=== PATIENT | male | born 1945 | race Caucasian/White ===

== ENCOUNTER → 2017-05-31 10:55 | Outpatient (CLI) | payer MEDICARE | END | disposition home or self-care (01) | LOC: D.MRI 10:55 | DX: M54.16 Radiculopathy, lumbar region (principal) ==

== ENCOUNTER 2017-10-24 11:53 | Outpatient (CLI) | payer MEDICARE ==
[~2017-10-24] VITALS: Ht 175.3 cm; Wt 81.8 kg
[2017-10-24 16:42] VITALS: BP 160/66; Ht 175.3 cm; Wt 81.8 kg
== END 2017-10-24 18:00 | disposition home or self-care (01) ==
LOC: D.OPS 11:53
DX: D46.20 Refractory anemia with excess of blasts, unspecified (principal); Z01.812 Encounter for preprocedural laboratory examination

== ENCOUNTER → 2017-10-29 09:00 | Outpatient (CLI) | payer MEDICARE ==
[2017-10-24 16:42] VITALS: BMI 26.6
== END | disposition home or self-care (01) ==
LOC: D.CT 08:30
DX: K13.79 Other lesions of oral mucosa (principal)

== ENCOUNTER → 2017-12-26 14:35 | Outpatient (CLI) | payer MEDICARE ==
[2017-10-24 16:42] VITALS: BMI 26.6
== END | disposition home or self-care (01) ==
LOC: D.MRI 12:00
DX: C79.31 Secondary malignant neoplasm of brain (principal)

== ENCOUNTER 2018-02-04 00:02 | Inpatient (IN) | payer MEDICARE ==
[2018-02-04] VITALS (8 sets, daily range): BP systolic 132–214; BP diastolic 47–92; Ht 175.3 cm; Wt 77.1 kg
[~2018-02-04] VITALS: Ht 175.3 cm; Wt 77.1 kg
--- NOTE | ~2018-02-04 | MORECARE ---
CASE MANAGEMENT DISCHARGE SUMMARY PATIENT: DAWN AGUILERA UNIT: [id number] ADM DATE: 02/06/18 AGE: 72 : 43 SEX: M ROOM/BED: D.2235 AUTHOR: VJ,DOC PHYSICIAN: REFERRING PHYSICIAN: RADHA HITCHCOCK MD DATE OF SERVICE: 02/17/18 Discharge Plan Patient Name: DAWN AGUILERA Facility: [facility]:[place] : 1945 Planned Disposition: Inpatient Rehab Anticipated Discharge Date: Discharge Date: Expected LOS: Initial Reviewer: [id number] Initial Review Date: 02/04/2018 Generated: 02/17/18 5:38 pm Comments DCP- Discharge Planning Updated by [email or web address]: Lucy Deshpande on 02/17/18 3:[address] Met son in the room and gave him a list of SNF with private rooms. He chose [facility] first. I spoke with Rose at [facility] and gave her a verbal report and clinical faxed. I informed Rose he is getting a PEG tube in the morning. CM will continue to follow and assist with discharge planning/needs. DCP- Discharge Planning Updated by [id number]: Lucy Deshpande on 02/17/18 9:[address] Met with son in the room per his request. Patient is sleeping. Son is asking me to have him evaluated for inpatient rehab because his father is now unable to get to the bathroom. I read him the note from inpatient rehab and explained that it's a Medicare requirement to also be able to participate in rehab for 3 hours a day and with his pain and prior PT notes, it is unlikely that he can participate in 3 hours a day. Saroj (patient's son) becomes angry and states "it's not because of his pain, it's because we are not doing anything for him." I informed him that I would ask inpatient rehab to come and speak with him. I called Divya and informed her of above and he is waiting to talk with them. He also tells me he has been waiting to talk to me for 14 hours and I explained to him that I came in at 8:30 this morning and was just told that you were wanting to speak with me. He has been unwilling to speak about hospice in the past and on Saturday, so I did not speak to him about hospice at this time. I spoke with Dr. Hitchcock about plan for patient. Dr. Hitchcock states he needs to go home or [facility] with hospice. He states he spoke with son this weekend about it and will be here around 3:00 today to speak to him again. I informed his son that Dr. Hitchcock plans on being here at 3 today. Offered him coffee or something to make him more comfortable and he declines. CM will continue to follow and assist with discharge planning/needs. DCP- Discharge Planning Updated by [id number]: Lucy Charlee on 02/14/18 3:[address] Met with patient yesterday and asked him if his son would be in to visit and he states he will be there that afternoon. I did not see his son yesterday, so I called him today to discuss discharge planning. Saroj (his son) was informed that I spoke with Divya in inpatient rehab and he does not meet guidelines for inpatient rehab. He has been ambulating 250 ft with 30% assist or refusing PT. I asked his son if he has another discharge plan and he states No. He seems upset that he does not meet criteria for inpatient rehab. His son states he is out of town this weekend and does not need to think about it now. I will continue to follow along and assist with discharge planning/needs. I did call Divya again and she states he does not meet CMS guidelines for inpatient rehab at this time. DCP- Discharge Planning Updated by [id number]: Lucy Deshpande on 02/11/18 9:[address] I called and spoke to Dariela at Dr. Hernandez's office. Dariela checked with the nurse and she states that Dr. Hernandez is seeing patient after his appointments this morning and should see the patient around lunch time today I notified Mignon, his primary nurse. CM will continue to follow and assist with discharge planning/needs. DCP- Discharge Planning Updated by [id number]: Lucy Deshpande on 02/07/18 4:[address] I spoke with Dr. Hitchcock and he was informed that Dr. Hernandez will be off call until at least Saturday. He states to let the son know. I met with patient's son, Saroj, and his ex- is in the room. Also Emma Davis is in the room from administration. The son is very unhappy with his father's care regarding treatment. His concern is his pain in his jaw and that "nothing is being done. " He is also wanting a second oncology opinion and requests Dr. Lakhani. He was informed that Dr. Lakhani may not be workday financials consultant this weekend, but he does have partners and the son is ok with that. He states Dr. Marx is his PCP and would like to see Dr. Marx. Emma informed him that we could transfer him to a facility that has ENT coverage if they would like. Son and patient refuses to return to [facility] in [place]. They were informed that he could transfer to another facility if they would like ENT to see before next week. At this time, the patient states it is up to his son because "I make poor decisions right now". The son requests to stay here and have Dr. Lakhani consulted. Emma and I talked to Dr. Hitchcock and verbal order received to consult Dr. Marx and Dr. Lakhani. I spoke with Emily at Dr. Marx's office and I spoke to Dr. Salgado (states he will see him tonight or in am). I informed the patient and his ex- that the physicians have been consulted (his son is not in the room at this time). CM will continue to follow and assist with discharge planning/needs. DCP- Discharge Planning Updated by [email or web address]: Lucy Deshpande on 02/07/18 3:[address] I called Dr. Mercedes to see if he knew of consult. States he tried to see patient last night but he was with his nurse and would see the patient today. His primary nurse, Lana, states she has called Dr. Hernandez's office about consult and spoke with Beckie. I called Dr. Hitchcock's office and his answering service picked up, I have asked them to page him to my number to inform of Dr. Hernandez's response. CM will continue to follow and assist with discharge planning/needs. DCP- Discharge Planning Updated by [id number]: Lucy Deshpande on 02/06/18 12:[address] I have talked to Viridiana for the second time at Dr. Hitchcock's office. I informed her that he was still in observation status and does meet inpatient requirement. I also informed her that his progress notes mention possible urology and ENT consult and he did not order consult and no lab is ordered for today. She states she will have him call me. CM will continue to follow and assist with discharge planning/needs. DCP- Discharge Planning Updated by [id number]: Lucy Charlee on 02/04/18 3:[address] Patient Name: DAWN AGUILERA Admission Status: ER Accout number: [id number] Admission Date: 02-04-2018 : 1945 Admission Diagnosis: Attending: RADHA HITCHCOCK Current LOS: 1 Anticipated DC Date: Planned Disposition: Inpatient Rehab Primary Insurance: [facility] [employer] Discharge Planning Comments: CM met with patient, he is alone in the room. He states he is hard of hearing and would like me to call his son for discharge planning. I called his son, Saroj, for discharge planning. I also explained UGALDE and left a copy for the patient. His son states he lives alone. States that he has declined since he got out of [facility] a few days ago. States he is unable to walk very far without difficulty. States he does not feel his dad can return home at this time and needs rehab. States he was turned down for rehab at [facility], but does not know why. States he would like inpatient rehab at [facility] if accepted. I called Dr. Hitchcock's office to get an order for PT/OT and received answering machine. I informed his primary nurse of need. CM will continue to follow and assist with discharge planning/needs. Child Adolescent Psychiatrist: Lucy Deshpande DCPIA - Discharge Planning Initial Assessment Updated by [id number]: Lucy Charlee on 02/04/18 3:02 pm * Is the patient Alert and Oriented? Yes * How many steps to enter\\exit or inside your home? 10 * PCP Araseli * Pharmacy [facility] * Preadmission Environment Home Alone * ADLs Partial Dependent * Partial ADLs (Assistance needed) Ambulation Medication Management * Equipment Wheelchair * List name and contact numbers for known caregivers / representatives who currently or will assist patient after discharge: Saroj - son - [phone] * Verbal permission to speak to the caregivers and representatives has been obtained from the patient. Yes * Community resources currently utilized Home Health * Please name any agencies selected above. [facility] * Additional services required to return to the preadmission environment? Yes * Can the patient safely return to the preadmission environment? No * Has this patient been hospitalized within the prior 30 days at any hospital? Yes Coverage Notice Reviewer: [id number] Joey Deshpande Notice Issued Date-Time: 02/04/2018 15:17 Notice Type: Medicare Outpatient Observation Notice Notice Delivered To: Family Member Relationship to Patient: Son Intelligence Applications Name: Saroj Aguilera Delivery Method: HAND - Hand Delivered Nahed Days: Prior Verbal Notification: Recipient Understood Notice: Yes Recipient Signature: Yes Med Rec Note Co-signed by Attending: Coverage Notice Comment: UGADLE explained to patient and to son on the phone, voiced understanding, copy given to patient. Last DP export: 02/17/18 3:32 p Patient Name: DAWN AGUILERA Page [id number] at 1638 All edits/amendments must be made on the electronic document DICTATION DATE: 02/17/18 1638 CISCO NETWORK ENGINEER: EAN 02/17/18 1638 RPT#: [id number] DC DATE: STATUS: ADM IN [facility] [address] [place] [address] END OF REPORT
--- NOTE | ~2018-02-04 | MORECARE ---
CASE MANAGEMENT DISCHARGE SUMMARY PATIENT: DAWN AGUILERA UNIT: [id number] ADM DATE: 02/06/18 AGE: 72 : 43 SEX: M ROOM/BED: D.2235 AUTHOR: VJDOC PHYSICIAN: REFERRING PHYSICIAN: RADHA HITCHCOCK MD DATE OF SERVICE: 02/07/18 Discharge Plan Patient Name: DAWN AGUILERA Facility: [facility]:[place] : 1945 Planned Disposition: Inpatient Rehab Anticipated Discharge Date: Discharge Date: Expected LOS: Initial Reviewer: [id number] Initial Review Date: 02/04/2018 Generated: 02/07/18 6:00 pm Comments DCP- Discharge Planning Updated by [email or web address]: Lucy Deshpande on 02/07/18 3:[address] I spoke with Dr. Hitchcock and he was informed that Dr. Hernandez will be off call until at least Saturday. He states to let the son know. I met with patient's son, Saroj, and his ex- is in the room. Also Emma Davis is in the room from administration. The son is very unhappy with his father's care regarding treatment. His concern is his pain in his jaw and that "nothing is being done. " He is also wanting a second oncology opinion and requests Dr. Lakhani. He was informed that Dr. Lakhani may not be communications controller this weekend, but he does have partners and the son is ok with that. He states Dr. Marx is his PCP and would like to see Dr. Marx. Emma informed him that we could transfer him to a facility that has ENT coverage if they would like. Son and patient refuses to return to [facility] in [place]. They were informed that he could transfer to another facility if they would like ENT to see before next week. At this time, the patient states it is up to his son because "I make poor decisions right now". The son requests to stay here and have Dr. Lakhani consulted. Emma and I talked to Dr. Hitchcock and verbal order received to consult Dr. Marx and Dr. Lakhani. I spoke with Emily at Dr. Marx's office and I spoke to Dr. Salgado (states he will see him tonight or in am). I informed the patient and his ex- that the physicians have been consulted (his son is not in the room at this time). CM will continue to follow and assist with discharge planning/needs. DCP- Discharge Planning Updated by [id number]: Lucy Deshpande on 02/07/18 2:[address] I called Dr. Mercedes to see if he knew of consult. States he tried to see patient last night but he was with his nurse and would see the patient today. His primary nurse, Lana, states she has called Dr. Hernandez's office about consult and spoke with Beckie. I called Dr. Hitchcock's office and his answering service picked up, I have asked them to page him to my number to inform of Dr. Hernandez's response. CM will continue to follow and assist with discharge planning/needs. DCP- Discharge Planning Updated by [email or web address]: Lucy Deshpande on 02/06/18 11:[address] I have talked to Viridiana for the second time at Dr. Hitchcock's office. I informed her that he was still in observation status and does meet inpatient requirement. I also informed her that his progress notes mention possible urology and ENT consult and he did not order consult and no lab is ordered for today. She states she will have him call me. CM will continue to follow and assist with discharge planning/needs. DCP- Discharge Planning Updated by [email or web address]: Lucy Deshpande on 02/04/18 2:[address] Patient Name: DAWN AGUILERA Admission Status: ER Accout number: [id number] Admission Date: 02-04-2018 : 1945 Admission Diagnosis: Attending: RADHA HITCHCOCK Current LOS: 1 Anticipated DC Date: Planned Disposition: Inpatient Rehab Primary Insurance: [facility] [employer] Discharge Planning Comments: CM met with patient, he is alone in the room. He states he is hard of hearing and would like me to call his son for discharge planning. I called his son, Saroj, for discharge planning. I also explained UGALDE and left a copy for the patient. His son states he lives alone. States that he has declined since he got out of [facility] a few days ago. States he is unable to walk very far without difficulty. States he does not feel his dad can return home at this time and needs rehab. States he was turned down for rehab at [facility], but does not know why. States he would like inpatient rehab at [facility] if accepted. I called Dr. Hitchcock's office to get an order for PT/OT and received answering machine. I informed his primary nurse of need. CM will continue to follow and assist with discharge planning/needs. Keyseater Operator: Lucy Deshpande DCPIA - Discharge Planning Initial Assessment Updated by [id number]: Lucy Deshpande on 02/04/18 3:02 pm * Is the patient Alert and Oriented? Yes * How many steps to enter\\exit or inside your home? 10 * PCP Araseli * Pharmacy [facility] * Preadmission Environment Home Alone * ADLs Partial Dependent * Partial ADLs (Assistance needed) Ambulation Medication Management * Equipment Wheelchair * List name and contact numbers for known caregivers / representatives who currently or will assist patient after discharge: Saroj rao - [phone] * Verbal permission to speak to the caregivers and representatives has been obtained from the patient. Yes * Community resources currently utilized Home Health * Please name any agencies selected above. [facility] * Additional services required to return to the preadmission environment? Yes * Can the patient safely return to the preadmission environment? No * Has this patient been hospitalized within the prior 30 days at any hospital? Yes Coverage Notice Reviewer: [id number] - Lucy Deshpande Notice Issued Date-Time: 02/04/2018 15:17 Notice Type: Medicare Outpatient Observation Notice Notice Delivered To: Family Member Relationship to Patient: Son [employer] Utility Worker Name: Saroj Aguilera Delivery Method: HAND - Hand Delivered Nahed Days: Prior Verbal Notification: Recipient Understood Notice: Yes Recipient Signature: Yes Med Rec Note Co-signed by Attending: Coverage Notice Comment: UGALDE explained to patient and to son on the phone, voiced understanding, copy given to patient. Last DP export: 02/07/18 2:51 Patient Name: DAWN AGUILERA Page [id number] at 1700 All edits/amendments must be made on the electronic document DICTATION DATE: 02/07/18 1700 PROCUREMENT MANAGER: EAN 02/07/18 1700 RPT#: [id number] DC DATE: STATUS: ADM IN [facility] [address] [place] [address] END OF REPORT
--- NOTE | ~2018-02-04 | MORECARE ---
CASE MANAGEMENT DISCHARGE SUMMARY PATIENT: DAWN AGUILERA UNIT: [id number] ADM DATE: 02/06/18 AGE: 72 : 43 SEX: M ROOM/BED: D.2235 AUTHOR: VJDOC PHYSICIAN: REFERRING PHYSICIAN: RADHA HITCHCOCK MD DATE OF SERVICE: 02/20/18 Discharge Plan Patient Name: DAWN AGUILERA Facility: [facility]:[place] : 1945 Planned Disposition: Inpatient Rehab Anticipated Discharge Date: Discharge Date: Expected LOS: Initial Reviewer: [email or web address] Initial Review Date: 02/04/2018 Generated: 02/20/18 4:24 pm Comments DCP- Discharge Planning Updated by [id number]: Lucy Deshpande on 02/20/18 2:[address] Received authorization for patient to come to [facility]. Dr. Hitchcock has put in discharge orders. I spoke with patient and son, Saroj. They are in agreement to discharge to [facility] today (Medicare bed). I informed Saroj that Lucille states he will have to provide Sutent to the patient and Saroj states he understands that and he will provide the Sutent. He will go via [place] van at 3:00. Clinical faxed to [facility] and Primary nurse (Chan) informed and 8 cans of Suplena sent with patient. To discharge today to [facility] skilled bed. DCP- Discharge Planning Updated by [id number]: Lucy Deshpande on 02/19/18 12:[address] Rose from [facility] called and states they will not take patient for usp. Rose states they will take him for Hospice with him signing up for Medicaid or private pay for room rate. I called [facility] and Danna states they do not take [facility] [employer]. I called Lucille Bishop and she states they do take his insurance at [facility] and [facility]. Lucille states they can take him to a skilled bed with a PEG tube per his insurance and will review clinical for decision. I met with patient's son and he agrees with plan to [facility] for usp. I did discuss hospice with his son and he states he has been considering hospice, but is not ready at this time. I discussed that he could revoke hospice at any time for hospital admits and procedures if needed and also the difference between GIP and home hospice or hospice in a facility. CM will continue to follow and assist with discharge planning/needs. DCP- Discharge Planning Updated by [email or web address]: Lucy Deshpande on 02/17/18 3:[address] Met son in the room and gave him a list of SNF with private rooms. He chose [facility] first. I spoke with Rose at [facility] and gave her a verbal report and clinical faxed. I informed Rose he is getting a PEG tube in the morning. CM will continue to follow and assist with discharge planning/needs. DCP- Discharge Planning Updated by [id number]: Lucy Deshpande on 02/17/18 9:[address] Met with son in the room per his request. Patient is sleeping. Son is asking me to have him evaluated for inpatient rehab because his father is now unable to get to the bathroom. I read him the note from inpatient rehab and explained that it's a Medicare requirement to also be able to participate in rehab for 3 hours a day and with his pain and prior PT notes, it is unlikely that he can participate in 3 hours a day. Saroj (patient's son) becomes angry and states "it's not because of his pain, it's because we are not doing anything for him." I informed him that I would ask inpatient rehab to come and speak with him. I called Divya and informed her of above and he is waiting to talk with them. He also tells me he has been waiting to talk to me for 14 hours and I explained to him that I came in at 8:30 this morning and was just told that you were wanting to speak with me. He has been unwilling to speak about hospice in the past and on Saturday, so I did not speak to him about hospice at this time. I spoke with Dr. Hitchcock about plan for patient. Dr. Hitchcock states he needs to go home or skilled nursing with hospice. He states he spoke with son this weekend about it and will be here around 3:00 today to speak to him again. I informed his son that Dr. Hitchcock plans on being here at 3 today. Offered him coffee or something to make him more comfortable and he declines. CM will continue to follow and assist with discharge planning/needs. DCP- Discharge Planning Updated by [id number]: Lucy Deshpande on 02/14/18 3:[address] Met with patient yesterday and asked him if his son would be in to visit and he states he will be there that afternoon. I did not see his son yesterday, so I called him today to discuss discharge planning. Saroj (his son) was informed that I spoke with Divya in inpatient rehab and he does not meet guidelines for inpatient rehab. He has been ambulating 250 ft with 30% assist or refusing PT. I asked his son if he has another discharge plan and he states No. He seems upset that he does not meet criteria for inpatient rehab. His son states he is out of town this weekend and does not need to think about it now. I will continue to follow along and assist with discharge planning/needs. I did call Divya again and she states he does not meet CMS guidelines for inpatient rehab at this time. DCP- Discharge Planning Updated by [id number]: Lucy Charlee on 02/11/18 9:[address] I called and spoke to Dariela at Dr. Hernandez's office. Dariela checked with the nurse and she states that Dr. Hernandez is seeing patient after his appointments this morning and should see the patient around lunch time today I notified Mignon, his primary nurse. CM will continue to follow and assist with discharge planning/needs. DCP- Discharge Planning Updated by [id number]: Lucy Charlee on 02/07/18 4:[address] I spoke with Dr. Hitchcock and he was informed that Dr. Hernandez will be off call until at least Saturday. He states to let the son know. I met with patient's son, Saroj, and his ex- is in the room. Also Emma Davis is in the room from administration. The son is very unhappy with his father's care regarding treatment. His concern is his pain in his jaw and that "nothing is being done. " He is also wanting a second oncology opinion and requests Dr. Lakhani. He was informed that Dr. Lakhani may not be ophthalmic surgeon this weekend, but he does have partners and the son is ok with that. He states Dr. Marx is his PCP and would like to see Dr. Marx. Emma informed him that we could transfer him to a facility that has ENT coverage if they would like. Son and patient refuses to return to [facility] in [place]. They were informed that he could transfer to another facility if they would like ENT to see before next week. At this time, the patient states it is up to his son because "I make poor decisions right now". The son requests to stay here and have Dr. Lakhani consulted. Emma and I talked to Dr. Hitchcock and verbal order received to consult Dr. Marx and Dr. Lakhani. I spoke with Emily at Dr. Marx's office and I spoke to Dr. Salgado (states he will see him tonight or in am). I informed the patient and his ex- that the physicians have been consulted (his son is not in the room at this time). CM will continue to follow and assist with discharge planning/needs. DCP- Discharge Planning Updated by [email or web address]: Lucy Deshpande on 02/07/18 3:[address] I called Dr. Mercedes to see if he knew of consult. States he tried to see patient last night but he was with his nurse and would see the patient today. His primary nurse, Lana, states she has called Dr. Hernandez's office about consult and spoke with Beckie. I called Dr. Hitchcock's office and his answering service picked up, I have asked them to page him to my number to inform of Dr. Hernandez's response. CM will continue to follow and assist with discharge planning/needs. DCP- Discharge Planning Updated by [id number]: Lucy Deshpande on 02/06/18 12:[address] I have talked to Viridiana for the second time at Dr. Hitchcock's office. I informed her that he was still in observation status and does meet inpatient requirement. I also informed her that his progress notes mention possible urology and ENT consult and he did not order consult and no lab is ordered for today. She states she will have him call me. CM will continue to follow and assist with discharge planning/needs. DCP- Discharge Planning Updated by [id number]: Lucy Deshpnade on 02/04/18 3:[address] Patient Name: DAWN AGUILERA Admission Status: ER Accout number: [id number] Admission Date: 02-04-2018 : 1945 Admission Diagnosis: Attending: RADHA HITCHCOCK Current LOS: 1 Anticipated DC Date: Planned Disposition: Inpatient Rehab Primary Insurance: [facility] MEDICARE SOLUTIONS Discharge Planning Comments: CM met with patient, he is alone in the room. He states he is hard of hearing and would like me to call his son for discharge planning. I called his son, Saroj, for discharge planning. I also explained UGALDE and left a copy for the patient. His son states he lives alone. States that he has declined since he got out of [facility] a few days ago. States he is unable to walk very far without difficulty. States he does not feel his dad can return home at this time and needs rehab. States he was turned down for rehab at [facility], but does not know why. States he would like inpatient rehab at [facility] if accepted. I called Dr. Hitchcock's office to get an order for PT/OT and received answering machine. I informed his primary nurse of need. CM will continue to follow and assist with discharge planning/needs. Veterinary Physiologist: Lucy Deshpande DCPIA - Discharge Planning Initial Assessment Updated by [id number]: Lucy Deshpande on 02/04/18 3:02 pm * Is the patient Alert and Oriented? Yes * How many steps to enter\\exit or inside your home? 10 * PCP Araseli * Pharmacy [facility] * Preadmission Environment Home Alone * ADLs Partial Dependent * Partial ADLs (Assistance needed) Ambulation Medication Management * Equipment Wheelchair * List name and contact numbers for known caregivers / representatives who currently or will assist patient after discharge: Saroj rao - [phone] * Verbal permission to speak to the caregivers and representatives has been obtained from the patient. Yes * Community resources currently utilized Home Health * Please name any agencies selected above. [facility] * Additional services required to return to the preadmission environment? Yes * Can the patient safely return to the preadmission environment? No * Has this patient been hospitalized within the prior 30 days at any hospital? Yes Coverage Notice Reviewer: [id number] - Lucy Deshpande Notice Issued Date-Time: 02/04/2018 15:17 Notice Type: Medicare Outpatient Observation Notice Notice Delivered To: Family Member Relationship to Patient: Son Shirt Operator Name: Saroj Aguilera Delivery Method: HAND - Hand Delivered Nahed Days: Prior Verbal Notification: Recipient Understood Notice: Yes Recipient Signature: Yes Med Rec Note Co-signed by Attending: Coverage Notice Comment: UGALDE explained to patient and to son on the phone, voiced understanding, copy given to patient. Reviewer: [id number] Joey Deshpande Notice Issued Date-Time: 02/20/2018 15:03 Notice Type: IM Discharge Notice Notice Delivered To: Family Member Relationship to Patient: Son Shirt Operator Name: Saroj Aguilera Delivery Method: HAND - Hand Delivered Nahed Days: Prior Verbal Notification: Recipient Understood Notice: Yes Recipient Signature: Yes Med Rec Note Co-signed by Attending: Coverage Notice Comment: IMM explained, son gives consent, copy left in room, original placed in MR Last DP export: 02/19/18 12:58 p Patient Name: DAWN AGUILERA Page [id number] at 1524 All edits/amendments must be made on the electronic document DICTATION DATE: 02/20/18 152 NUCLEAR TECHNOLOGIST: EAN 02/20/18 152 RPT#: [id number] DC DATE: STATUS: ADM IN [facility] [address] [place] [address] END OF REPORT
--- NOTE | ~2018-02-04 | MORECARE ---
CASE MANAGEMENT DISCHARGE SUMMARY PATIENT: DAWN AGUILERA UNIT: [id number] ADM DATE: 02/04/18 AGE: 72 : 44 SEX: M ROOM/BED: D.2235 AUTHOR: CASSY ZABALA PHYSICIAN: REFERRING PHYSICIAN: RADHA HITCHCOCK MD DATE OF SERVICE: 02/06/18 Discharge Plan Patient Name: DAWN AGUILERA Facility: [facility]:[place] : 1945 Planned Disposition: Inpatient Rehab Anticipated Discharge Date: Discharge Date: Expected LOS: Initial Reviewer: [id number] Initial Review Date: 02/04/2018 Generated: 02/06/18 1:45 pm Comments DCP- Discharge Planning Updated by [email or web address]: Lucy Avinamatt on 02/06/18 11:[address] I have talked to Viridiana for the second time at Dr. Hitchcock's office. I informed her that he was still in observation status and does meet inpatient requirement. I also informed her that his progress notes mention possible urology and ENT consult and he did not order consult and no lab is ordered for today. She states she will have him call me. CM will continue to follow and assist with discharge planning/needs. DCP- Discharge Planning Updated by [id number]: Lucy Avinamatt on 02/04/18 2:[address] Patient Name: DAWN AGUILERA Admission Status: ER Accout number: [id number] Admission Date: 02-04-2018 : 1945 Admission Diagnosis: Attending: RADHA HITCHCOCK Current LOS: 1 Anticipated DC Date: Planned Disposition: Inpatient Rehab Primary Insurance: [facility] MEDICARE SOLUTIONS Discharge Planning Comments: CM met with patient, he is alone in the room. He states he is hard of hearing and would like me to call his son for discharge planning. I called his son, Saroj, for discharge planning. I also explained UGALDE and left a copy for the patient. His son states he lives alone. States that he has declined since he got out of [facility] a few days ago. States he is unable to walk very far without difficulty. States he does not feel his dad can return home at this time and needs rehab. States he was turned down for rehab at [facility], but does not know why. States he would like inpatient rehab at [facility] if accepted. I called Dr. Hitchcock's office to get an order for PT/OT and received answering machine. I informed his primary nurse of need. CM will continue to follow and assist with discharge planning/needs. Jockey Room Custodian: Lucy Deshpande DCPIA - Discharge Planning Initial Assessment Updated by [id number]: Lucy Deshpande on 02/04/18 3:02 pm * Is the patient Alert and Oriented? Yes * How many steps to enter\exit or inside your home? 10 * PCP Araseli * Pharmacy [facility] * Preadmission Environment Home Alone * ADLs Partial Dependent * Partial ADLs (Assistance needed) Ambulation Medication Management * Equipment Wheelchair * List name and contact numbers for known caregivers / representatives who currently or will assist patient after discharge: Saroj rao - [phone] * Verbal permission to speak to the caregivers and representatives has been obtained from the patient. Yes * Community resources currently utilized Home Health * Please name any agencies selected above. [facility] * Additional services required to return to the preadmission environment? Yes * Can the patient safely return to the preadmission environment? No * Has this patient been hospitalized within the prior 30 days at any hospital? Yes Coverage Notice Reviewer: [id number] - Lucy Deshpande Notice Issued Date-Time: 02/04/2018 15:17 Notice Type: Medicare Outpatient Observation Notice Notice Delivered To: Family Member Relationship to Patient: Son Sugar Plantation Manager Name: Saroj Aguilera Delivery Method: HAND - Hand Delivered Nahed Days: Prior Verbal Notification: Recipient Understood Notice: Yes Recipient Signature: Yes Med Rec Note Co-signed by Attending: Coverage Notice Comment: UGALDE explained to patient and to son on the phone, voiced understanding, copy given to patient. Last DP export: 02/04/18 2:27 Patient Name: DAWN AGUILERA Page [id number] at 1245 All edits/amendments must be made on the electronic document DICTATION DATE: 02/06/18 1248 SLINGER SEQUINS: EAN 02/06/18 1245 RPT#: [id number] DC DATE: STATUS: ADM IN [facility] [address] [place] [address] END OF REPORT
--- NOTE | ~2018-02-04 | MORECARE ---
CASE MANAGEMENT DISCHARGE SUMMARY PATIENT: DAWN AGUILERA UNIT: [id number] ADM DATE: 02/04/18 AGE: 72 : 44 SEX: M ROOM/BED: D.2235 AUTHOR: VJDOC PHYSICIAN: REFERRING PHYSICIAN: RADHA HITCHCOCK MD DATE OF SERVICE: 02/04/18 Discharge Plan Patient Name: DAWN AGUILERA Facility: [facility]:[place] : 1945 Planned Disposition: Inpatient Rehab Anticipated Discharge Date: Discharge Date: Expected LOS: Initial Reviewer: [email or web address] Initial Review Date: 02/04/2018 Generated: 02/04/18 4:27 pm DCP- Discharge Planning Updated by [email or web address]: Lucy Deshpande on 02/04/18 2:[address] Patient Name: DAWN AGUILERA Admission Status: ER Accout number: [id number] Admission Date: 02-04-2018 : 1945 Admission Diagnosis: Attending: RADHA HITCHCOCK Current LOS: 1 Anticipated DC Date: Planned Disposition: Inpatient Rehab Primary Insurance: [facility] MEDICARE SOLUTIONS Discharge Planning Comments: CM met with patient, he is alone in the room. He states he is hard of hearing and would like me to call his son for discharge planning. I called his son, Saroj, for discharge planning. I also explained UGALDE and left a copy for the patient. His son states he lives alone. States that he has declined since he got out of [facility] a few days ago. States he is unable to walk very far without difficulty. States he does not feel his dad can return home at this time and needs rehab. States he was turned down for rehab at [facility], but does not know why. States he would like inpatient rehab at [facility] if accepted. I called Dr. Hitchcock's office to get an order for PT/OT and received answering machine. I informed his primary nurse of need. CM will continue to follow and assist with discharge planning/needs. User Experience Researcher: Lucy Deshpande DCPIA - Discharge Planning Initial Assessment Updated by [email or web address]: Lucy Deshpande on 02/04/18 3:02 pm * Is the patient Alert and Oriented? Yes * How many steps to enter\exit or inside your home? 10 * PCP Araseli * Pharmacy [facility] * Preadmission Environment Home Alone * ADLs Partial Dependent * Partial ADLs (Assistance needed) Ambulation Medication Management * Equipment Wheelchair * List name and contact numbers for known caregivers / representatives who currently or will assist patient after discharge: Saroj rao - [phone] * Verbal permission to speak to the caregivers and representatives has been obtained from the patient. Yes * Community resources currently utilized Home Health * Please name any agencies selected above. [facility] * Additional services required to return to the preadmission environment? Yes * Can the patient safely return to the preadmission environment? No * Has this patient been hospitalized within the prior 30 days at any hospital? Yes Coverage Notice Reviewer: [id number] Joey Deshpande Notice Issued Date-Time: 02/04/2018 15:17 Notice Type: Medicare Outpatient Observation Notice Notice Delivered To: Family Member Relationship to Patient: Son Start Up Specialist Name: Saroj Aguilera Delivery Method: HAND - Hand Delivered Nahed Days: Prior Verbal Notification: Recipient Understood Notice: Yes Recipient Signature: Yes Med Rec Note Co-signed by Attending: Coverage Notice Comment: UGALDE explained to patient and to son on the phone, voiced understanding, copy given to patient. Last DP export: 02/04/18 2:05 Patient Name: DAWN AGUILERA Page [id number] at 1527 All edits/amendments must be made on the electronic document DICTATION DATE: 02/04/181526 FISHER TRAP: EAN 02/04/181526 RPT#: [id number] DC DATE: STATUS: ADM IN [facility] [address] [place] [address] END OF REPORT
--- NOTE | ~2018-02-04 | MORECARE ---
CASE MANAGEMENT DISCHARGE SUMMARY PATIENT: DAWN AGUILERA UNIT: [id number] ADM DATE: 02/06/18 AGE: 72 : 44 SEX: M ROOM/BED: D.2235 AUTHOR: VJ,DOC PHYSICIAN: REFERRING PHYSICIAN: RADHA HITCHCOCK MD DATE OF SERVICE: 02/19/18 Discharge Plan Patient Name: DAWN AGUILERA Facility: [facility]:[place] : 1945 Planned Disposition: Inpatient Rehab Anticipated Discharge Date: Discharge Date: Expected LOS: Initial Reviewer: [id number] Initial Review Date: 02/04/2018 Generated: 02/19/18 2:50 pm Comments DCP- Discharge Planning Updated by [email or web address]: Lucy Deshpande on 02/17/18 3:[address] Met son in the room and gave him a list of SNF with private rooms. He chose [facility]. I spoke with Rose at [facility] and gave her a verbal report and clinical faxed. I informed Rose he is getting a PEG tube in the morning. CM will continue to follow and assist with discharge planning/needs. DCP- Discharge Planning Updated by [email or web address]: Lucy Deshpande on 02/17/18 9:[address] Met with son in the room per his request. Patient is sleeping. Son is asking me to have him evaluated for inpatient rehab because his father is now unable to get to the bathroom. I read him the note from inpatient rehab and explained that it's a Medicare requirement to also be able to participate in rehab for 3 hours a day and with his pain and prior PT notes, it is unlikely that he can participate in 3 hours a day. Saroj (patient's son) becomes angry and states "it's not because of his pain, it's because we are not doing anything for him." I informed him that I would ask inpatient rehab to come and speak with him. I called Divya and informed her of above and he is waiting to talk with them. He also tells me he has been waiting to talk to me for 14 hours and I explained to him that I came in at 8:30 this morning and was just told that you were wanting to speak with me. He has been unwilling to speak about hospice in the past and on Saturday, so I did not speak to him about hospice at this time. I spoke with Dr. Hitchcock about plan for patient. Dr. Hitchcock states he needs to go home or pen[facility]entiary with hospice. He states he spoke with son this weekend about it and will be here around 3:00 today to speak to him again. I informed his son that Dr. Hitchcock plans on being here at 3 today. Offered him coffee or something to make him more comfortable and he declines. CM will continue to follow and assist with discharge planning/needs. DCP- Discharge Planning Updated by [id number]: Lucy Charlee on 02/14/18 3:[address] Met with patient yesterday and asked him if his son would be in to visit and he states he will be there that afternoon. I did not see his son yesterday, so I called him today to discuss discharge planning. Saroj (his son) was informed that I spoke with Divya in inpatient rehab and he does not meet guidelines for inpatient rehab. He has been ambulating 250 ft with 30% assist or refusing PT. I asked his son if he has another discharge plan and he states No. He seems upset that he does not meet criteria for inpatient rehab. His son states he is out of town this weekend and does not need to think about it now. I will continue to follow along and assist with discharge planning/needs. I did call Divya again and she states he does not meet CMS guidelines for inpatient rehab at this time. DCP- Discharge Planning Updated by [id number]: Lucy Deshpande on 02/11/18 9:[address] I called and spoke to Dariela at Dr. Hernandez's office. Dariela checked with the nurse and she states that Dr. Hernandez is seeing patient after his appointments this morning and should see the patient around lunch time today I notified Mignon, his primary nurse. CM will continue to follow and assist with discharge planning/needs. DCP- Discharge Planning Updated by [id number]: Lucy Deshpande on 02/07/18 4:[address] I spoke with Dr. Hitchcock and he was informed that Dr. Hernandez will be off call until at least Saturday. He states to let the son know. I met with patient's son, Saroj, and his ex- is in the room. Also Emma Davis is in the room from administration. The son is very unhappy with his father's care regarding treatment. His concern is his pain in his jaw and that "nothing is being done. " He is also wanting a second oncology opinion and requests Dr. Lakhani. He was informed that Dr. Lakhani may not be concession attendant this weekend, but he does have partners and the son is ok with that. He states Dr. Marx is his PCP and would like to see Dr. Marx. Emma informed him that we could transfer him to a facility that has ENT coverage if they would like. Son and patient refuses to return to [facility] in [place]. They were informed that he could transfer to another facility if they would like ENT to see before next week. At this time, the patient states it is up to his son because "I make poor decisions right now". The son requests to stay here and have Dr. Lakhani consulted. Emma and I talked to Dr. Hitchcock and verbal order received to consult Dr. Marx and Dr. Lakhani. I spoke with Emily at Dr. Marx's office and I spoke to Dr. Salgado (states he will see him tonight or in am). I informed the patient and his ex- that the physicians have been consulted (his son is not in the room at this time). CM will continue to follow and assist with discharge planning/needs. DCP- Discharge Planning Updated by [email or web address]: Lucy Deshpande on 02/07/18 3:[address] I called Dr. Mercedes to see if he knew of consult. States he tried to see patient last night but he was with his nurse and would see the patient today. His primary nurse, Lana, states she has called Dr. Hernandez's office about consult and spoke with Beckie. I called Dr. Hitchcock's office and his answering service picked up, I have asked them to page him to my number to inform of Dr. Hernandez's response. CM will continue to follow and assist with discharge planning/needs. DCP- Discharge Planning Updated by [id number]: Lucy Deshpande on 02/06/18 12:[address] I have talked to Viridiana for the second time at Dr. Hitchcock's office. I informed her that he was still in observation status and does meet inpatient requirement. I also informed her that his progress notes mention possible urology and ENT consult and he did not order consult and no lab is ordered for today. She states she will have him call me. CM will continue to follow and assist with discharge planning/needs. DCP- Discharge Planning Updated by [email or web address]: Lucy Charlee on 02/04/18 3:[address] Patient Name: DAWN AGUILERA Admission Status: ER Accout number: [id number] Admission Date: 02-04-2018 : 1945 Admission Diagnosis: Attending: RADHA HITCHCOCK Current LOS: 1 Anticipated DC Date: Planned Disposition: Inpatient Rehab Primary Insurance: [facility] [employer] SOLUTIONS Discharge Planning Comments: CM met with patient, he is alone in the room. He states he is hard of hearing and would like me to call his son for discharge planning. I called his son, Saroj, for discharge planning. I also explained UGALDE and left a copy for the patient. His son states he lives alone. States that he has declined since he got out of [facility] a few days ago. States he is unable to walk very far without difficulty. States he does not feel his dad can return home at this time and needs rehab. States he was turned down for rehab at [facility], but does not know why. States he would like inpatient rehab at [facility] if accepted. I called Dr. Hitchcock's office to get an order for PT/OT and received answering machine. I informed his primary nurse of need. CM will continue to follow and assist with discharge planning/needs. Dowel Machine Operator: Lucy Deshpande DCPIA - Discharge Planning Initial Assessment Updated by [email or web address]: Lucy Charlee on 02/04/18 3:02 pm * Is the patient Alert and Oriented? Yes * How many steps to enter\\exit or inside your home? 10 * PCP Araseli * Pharmacy [facility] * Preadmission Environment Home Alone * ADLs Partial Dependent * Partial ADLs (Assistance needed) Ambulation Medication Management * Equipment Wheelchair * List name and contact numbers for known caregivers / representatives who currently or will assist patient after discharge: Saroj - son - [phone] * Verbal permission to speak to the caregivers and representatives has been obtained from the patient. Yes * Community resources currently utilized Home Health * Please name any agencies selected above. [facility] * Additional services required to return to the preadmission environment? Yes * Can the patient safely return to the preadmission environment? No * Has this patient been hospitalized within the prior 30 days at any hospital? Yes External Providers External Provider: [facility] Next Contact Date: Service Request Date: Service Type: Resolution: Reviewer: Comments: Coverage Notice Reviewer: [id number] Joey Deshpande Notice Issued Date-Time: 02/04/2018 15:17 Notice Type: Medicare Outpatient Observation Notice Notice Delivered To: Family Member Relationship to Patient: Son Game Designer/Creative Director Name: Saroj Aguilera Delivery Method: HAND - Hand Delivered Nahed Days: Prior Verbal Notification: Recipient Understood Notice: Yes Recipient Signature: Yes Med Rec Note Co-signed by Attending: Coverage Notice Comment: UGALDE explained to patient and to son on the phone, voiced understanding, copy given to patient. Last DP export: 02/17/18 3:38 p Patient Name: DAWN AGUILERA Page [phone] at 1350 All edits/amendments must be made on the electronic document DICTATION DATE: 02/19/18 1349 TEST ARCHITECT: EAN 02/19/18 1349 RPT#: [id number] DC DATE: STATUS: ADM IN [facility] [address] [place] [address] END OF REPORT
--- NOTE | ~2018-02-04 | CN ---
PATIENT NAME:DAWN BOLTON MEDICAL RECORD: [id number] : 43 LOCATION:[facility] ADMIT DATE: 02/06/18 ACCOUNT: [id number] CONSULTING PHYSICIAN: WELLINGTON RAY MD REFERRING PHYSICIAN: RADHA HITCHCOCK MD DATE OF CONSULTATION: 02/07/2018 Cardiology Consultation REASON FOR CONSULTATION: Medical management. 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 He continues to have pain. The hematuria has almost cleared up. Dr. Marx is his primary care physician and he is consulted for medical management. 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 He has had radiation to his brain. PAST SURGICAL HISTORY: Appendectomy, knee surgery. DRUG ALLERGIES: None. CURRENT MEDICATIONS: Listed under MAR. HABITS: Former smoker, no alcohol or drugs. FAMILY HISTORY: Father at 76 of lung cancer. Mother at 48 of breast cancer. PHYSICAL EXAMINATION: VITAL SIGNS: Temperature 98.6, pulse 96, respirations 18, blood pressure 178/92, O2 sat 97%. GENERAL: The patient is hard of hearing. He is sleeping, easily awakened. He says his main problem and pain area right now is on the left side of the jaw. He has difficulty swallowing, difficulty talking. He is not able to eat much. HEENT: There is obvious swelling on the left side of the jaw. He is not able to open his mouth very much. Has an obvious lesion on the left side. NECK: No bruits. HEART: Regular rate and rhythm. LUNGS: Fairly clear. ABDOMEN: No hepatosplenomegaly. No guarding. ABDOMEN: Soft. NEUROLOGIC: No gross deficits. SKIN: No rash. LABORATORY DATA: Reviewed. CBC showed a white count 9200, hemoglobin 9.7, hematocrit 27.6. Basic metabolic panel is okay except glucose is a little high at 221. CONSULT REPORT [id number] DAWN BOLTON ASSESSMENT: 1. Diabetes. 2. Metastatic clear cell carcinoma with mets to brain, multiple bones and lung. PLAN: I have reviewed notes here. Dr. Mercedes has been consulted and he said the patient could possibly have a right nephrectomy for palliation only. I see that Dr. Hitchcock consulted Dr. Avalos for any input he may have about his jaw lesion. I am afraid there is not much to offer him. We will try to control his diabetes, obviously pain control. No family is in the room at this time, they have gone home and notes have been reviewed by Dr. Hitchcock, sounds like they want a second opinion for treatments. Son does not think the patient can go home. Son does not want him going to a prison and son cannot take care of him at his home that puts us in a bind as far as treatment and where, apparently hospice has been brought up. Dr. Marx to see the patient tomorrow. TRANSINT:[id number] Voice Confirmation ID: [id number] DOCUMENT ID: [id number] WELLINGTON RAY MD at 1346 CC: [id number] DICTATION DATE: 02/07/181920 ALTERATION TAILOR: 02/07/18 2301 ADM IN [facility] [address] [place] [address]
--- NOTE | ~2018-02-04 | MORECARE ---
CASE MANAGEMENT DISCHARGE SUMMARY PATIENT: DAWN AGUILERA UNIT: [id number] ADM DATE: 02/06/18 AGE: 72 : 43 SEX: M ROOM/BED: D.2235 AUTHOR: VJDOC PHYSICIAN: REFERRING PHYSICIAN: RADHA HITCHCOCK MD DATE OF SERVICE: 02/17/18 Discharge Plan Patient Name: DAWN AGUILERA Facility: [facility]:[place] : 1945 Planned Disposition: Inpatient Rehab Anticipated Discharge Date: Discharge Date: Expected LOS: Initial Reviewer: [email or web address] Initial Review Date: 02/04/2018 Generated: 02/17/18 5:32 pm Comments DCP- Discharge Planning Updated by [id number]: Lucy Deshpande on 02/17/18 9:[address] Met with son in the room per his request. Patient is sleeping. Son is asking me to have him evaluated for inpatient rehab because his father is now unable to get to the bathroom. I read him the note from inpatient rehab and explained that it's a Medicare requirement to also be able to participate in rehab for 3 hours a day and with his pain and prior PT notes, it is unlikely that he can participate in 3 hours a day. Saroj (patient's son) becomes angry and states "it's not because of his pain, it's because we are not doing anything for him." I informed him that I would ask inpatient rehab to come and speak with him. I called Divya and informed her of above and he is waiting to talk with them. He also tells me he has been waiting to talk to me for 14 hours and I explained to him that I came in at 8:30 this morning and was just told that you were wanting to speak with me. He has been unwilling to speak about hospice in the past and on Saturday, so I did not speak to him about hospice at this time. I spoke with Dr. Hitchcock about plan for patient. Dr. Hitchcock states he needs to go home or [facility] with hospice. He states he spoke with son this weekend about it and will be here around 3:00 today to speak to him again. I informed his son that Dr. Hitchcock plans on being here at 3 today. Offered him coffee or something to make him more comfortable and he declines. CM will continue to follow and assist with discharge planning/needs. DCP- Discharge Planning Updated by [id number]: Lucy Deshpande on 02/14/18 3:[address] Met with patient yesterday and asked him if his son would be in to visit and he states he will be there that afternoon. I did not see his son yesterday, so I called him today to discuss discharge planning. Saroj (his son) was informed that I spoke with Divya in inpatient rehab and he does not meet guidelines for inpatient rehab. He has been ambulating 250 ft with 30% assist or refusing PT. I asked his son if he has another discharge plan and he states No. He seems upset that he does not meet criteria for inpatient rehab. His son states he is out of town this weekend and does not need to think about it now. I will continue to follow along and assist with discharge planning/needs. I did call Divya again and she states he does not meet CMS guidelines for inpatient rehab at this time. DCP- Discharge Planning Updated by [email or web address]: Lucy Avinamatt on 02/11/18 9:[address] I called and spoke to Dariela at Dr. Hernandez's office. Dariela checked with the nurse and she states that Dr. Hernandez is seeing patient after his appointments this morning and should see the patient around lunch time today I notified Mignon, his primary nurse. CM will continue to follow and assist with discharge planning/needs. DCP- Discharge Planning Updated by [id number]: Lucy Charlee on 02/07/18 4:[address] I spoke with Dr. Hitchcock and he was informed that Dr. Hernandez will be off call until at least Saturday. He states to let the son know. I met with patient's son, Saroj, and his ex- is in the room. Also Emma Davis is in the room from administration. The son is very unhappy with his father's care regarding treatment. His concern is his pain in his jaw and that "nothing is being done. " He is also wanting a second oncology opinion and requests Dr. Lakhani. He was informed that Dr. Lakhani may not be electronic systems technician this weekend, but he does have partners and the son is ok with that. He states Dr. Marx is his PCP and would like to see Dr. Marx. Emma informed him that we could transfer him to a facility that has ENT coverage if they would like. Son and patient refuses to return to [facility] in [place]. They were informed that he could transfer to another facility if they would like ENT to see before next week. At this time, the patient states it is up to his son because "I make poor decisions right now". The son requests to stay here and have Dr. Lakhani consulted. Emma and I talked to Dr. Hitchcock and verbal order received to consult Dr. Marx and Dr. Lakhani. I spoke with Emily at Dr. Marx's office and I spoke to Dr. Salgado (states he will see him tonight or in am). I informed the patient and his ex- that the physicians have been consulted (his son is not in the room at this time). CM will continue to follow and assist with discharge planning/needs. DCP- Discharge Planning Updated by [id number]: Lucy Deshpande on 02/07/18 3:[address] I called Dr. Mercedes to see if he knew of consult. States he tried to see patient last night but he was with his nurse and would see the patient today. His primary nurse, Lana, states she has called Dr. Hernandez's office about consult and spoke with Beckie. I called Dr. Hitchcock's office and his answering service picked up, I have asked them to page him to my number to inform of Dr. Hernandez's response. CM will continue to follow and assist with discharge planning/needs. DCP- Discharge Planning Updated by [id number]: Lucy Deshpande on 02/06/18 12:[address] I have talked to Viridiana for the second time at Dr. Hitchcock's office. I informed her that he was still in observation status and does meet inpatient requirement. I also informed her that his progress notes mention possible urology and ENT consult and he did not order consult and no lab is ordered for today. She states she will have him call me. CM will continue to follow and assist with discharge planning/needs. DCP- Discharge Planning Updated by [id number]: Lucy Deshpande on 02/04/18 3:[address] Patient Name: DAWN AGUILERA Admission Status: ER Accout number: [id number] Admission Date: 02-04-2018 : 1945 Admission Diagnosis: Attending: RADHA HITCHCOCK Current LOS: 1 Anticipated DC Date: Planned Disposition: Inpatient Rehab Primary Insurance: [facility] MEDICARE SOLUTIONS Discharge Planning Comments: CM met with patient, he is alone in the room. He states he is hard of hearing and would like me to call his son for discharge planning. I called his son, Saroj, for discharge planning. I also explained UGALDE and left a copy for the patient. His son states he lives alone. States that he has declined since he got out of [facility] a few days ago. States he is unable to walk very far without difficulty. States he does not feel his dad can return home at this time and needs rehab. States he was turned down for rehab at [facility], but does not know why. States he would like inpatient rehab at [facility] if accepted. I called Dr. Hitchcock's office to get an order for PT/OT and received answering machine. I informed his primary nurse of need. CM will continue to follow and assist with discharge planning/needs. Tire Bladder Maker: Lucy Deshpande DCPIA - Discharge Planning Initial Assessment Updated by [id number]: Lucy Deshpande on 02/04/18 3:02 pm * Is the patient Alert and Oriented? Yes * How many steps to enter\\exit or inside your home? 10 * PCP Araseli * Pharmacy [facility] * Preadmission Environment Home Alone * ADLs Partial Dependent * Partial ADLs (Assistance needed) Ambulation Medication Management * Equipment Wheelchair * List name and contact numbers for known caregivers / representatives who currently or will assist patient after discharge: Saroj rao - [phone] * Verbal permission to speak to the caregivers and representatives has been obtained from the patient. Yes * Community resources currently utilized Home Health * Please name any agencies selected above. [facility] * Additional services required to return to the preadmission environment? Yes * Can the patient safely return to the preadmission environment? No * Has this patient been hospitalized within the prior 30 days at any hospital? Yes External Providers External Provider: [facility] Next Contact Date: Service Request Date: Service Type: Resolution: Reviewer: Comments: Coverage Notice Reviewer: [id number] - Lucy Avinamatt Notice Issued Date-Time: 02/04/2018 15:17 Notice Type: Medicare Outpatient Observation Notice Notice Delivered To: Family Member Relationship to Patient: Son Hosiery Looper Name: Saroj Aguilera Delivery Method: HAND - Hand Delivered Nahed Days: Prior Verbal Notification: Recipient Understood Notice: Yes Recipient Signature: Yes Med Rec Note Co-signed by Attending: Coverage Notice Comment: UGALDE explained to patient and to son on the phone, voiced understanding, copy given to patient. Last DP export: 02/17/18 9:21 a Patient Name: DAWN AGUILERA Page [id number] at 1632 All edits/amendments must be made on the electronic document DICTATION DATE: 02/17/18 163 HACKSAW INSPECTOR: EAN 02/17/18 1631 RPT#: [id number] DC DATE: STATUS: ADM IN [facility] [address] [place] [address] END OF REPORT
--- NOTE | ~2018-02-04 | MORECARE ---
CASE MANAGEMENT DISCHARGE SUMMARY PATIENT: DAWN AGUILERA UNIT: [id number] ADM DATE: 02/06/18 AGE: 72 : 43 SEX: M ROOM/BED: D.2235 AUTHOR: CASSY ZABALA PHYSICIAN: REFERRING PHYSICIAN: RADHA HITCHCOCK MD DATE OF SERVICE: 02/21/18 Discharge Plan Patient Name: DAWN AGUILERA Facility: [facility]:[place] : 1945 Planned Disposition: Inpatient Rehab Anticipated Discharge Date: Discharge Date: 02/20/2018 Expected LOS: 0 Initial Reviewer: [email or web address] Initial Review Date: 02/04/2018 Generated: 02/21/18 5:53 pm Comments DCP- Discharge Planning Updated by [email or web address]: Lucy Deshpande on 02/20/18 2:[address] Received authorization for patient to come to [facility] SN[facility]. Dr. Hitchcock has put in discharge orders. I spoke with patient and son, Saroj. They are in agreement to discharge to [facility] SN[facility] today (Medicare bed). I informed Saroj that Lucille states he will have to provide Sutent to the patient and Saroj states he understands that and he will provide the Sutent. He will go via [place] van at 3:00. Clinical faxed to [facility] and Primary nurse (Chan) informed and 8 cans of Suplena sent with patient. To discharge today to [facility] skilled bed. DCP- Discharge Planning Updated by [id number]: Lucy Deshpande on 02/19/18 12:[address] Rose from [facility] called and states they will not take patient for penitentiary. Rose states they will take him for Hospice with him signing up for Medicaid or private pay for room rate. I called [facility] and Danna states they do not take [facility] Medicare Solutions. I called Lucille Bishop and she states they do take his insurance at [facility] and [facility]. Lucille states they can take him to a skilled bed with a PEG tube per his insurance and will review clinical for decision. I met with patient's son and he agrees with plan to [facility] for penitentiary. I did discuss hospice with his son and he states he has been considering hospice, but is not ready at this time. I discussed that he could revoke hospice at any time for hospital admits and procedures if needed and also the difference between GIP and home hospice or hospice in a facility. CM will continue to follow and assist with discharge planning/needs. DCP- Discharge Planning Updated by [email or web address]: Lucy Deshpande on 02/17/18 3:[address] Met son in the room and gave him a list of SNF with private rooms. He chose [facility] first. I spoke with Rose at [facility] and gave her a verbal report and clinical faxed. I informed Rose he is getting a PEG tube in the morning. CM will continue to follow and assist with discharge planning/needs. DCP- Discharge Planning Updated by [email or web address]: Lucy Deshpande on 02/17/18 9:[address] Met with son in the room per his request. Patient is sleeping. Son is asking me to have him evaluated for inpatient rehab because his father is now unable to get to the bathroom. I read him the note from inpatient rehab and explained that it's a Medicare requirement to also be able to participate in rehab for 3 hours a day and with his pain and prior PT notes, it is unlikely that he can participate in 3 hours a day. Saroj (patient's son) becomes angry and states "it's not because of his pain, it's because we are not doing anything for him." I informed him that I would ask inpatient rehab to come and speak with him. I called Divya and informed her of above and he is waiting to talk with them. He also tells me he has been waiting to talk to me for 14 hours and I explained to him that I came in at 8:30 this morning and was just told that you were wanting to speak with me. He has been unwilling to speak about hospice in the past and on Saturday, so I did not speak to him about hospice at this time. I spoke with Dr. Hitchcock about plan for patient. Dr. Hitchcock states he needs to go home or fci with hospice. He states he spoke with son this weekend about it and will be here around 3:00 today to speak to him again. I informed his son that Dr. Hitchcock plans on being here at 3 today. Offered him coffee or something to make him more comfortable and he declines. CM will continue to follow and assist with discharge planning/needs. DCP- Discharge Planning Updated by [email or web address]: Lucy Deshpande on 02/14/18 3:[address] Met with patient yesterday and asked him if his son would be in to visit and he states he will be there that afternoon. I did not see his son yesterday, so I called him today to discuss discharge planning. Saroj (his son) was informed that I spoke with Divya in inpatient rehab and he does not meet guidelines for inpatient rehab. He has been ambulating 250 ft with 30% assist or refusing PT. I asked his son if he has another discharge plan and he states No. He seems upset that he does not meet criteria for inpatient rehab. His son states he is out of town this weekend and does not need to think about it now. I will continue to follow along and assist with discharge planning/needs. I did call Divya again and she states he does not meet CMS guidelines for inpatient rehab at this time. DCP- Discharge Planning Updated by [id number]: Lucy Avinamatt on 02/11/18 9:[address] I called and spoke to Dariela at Dr. Hernandez's office. Dariela checked with the nurse and she states that Dr. Hernandez is seeing patient after his appointments this morning and should see the patient around lunch time today I notified Mignon, his primary nurse. CM will continue to follow and assist with discharge planning/needs. DCP- Discharge Planning Updated by [id number]: Lucy Charlee on 02/07/18 4:[address] I spoke with Dr. Hitchcock and he was informed that Dr. Hernandez will be off call until at least Saturday. He states to let the son know. I met with patient's son, Saroj, and his ex- is in the room. Also Emma Davis is in the room from administration. The son is very unhappy with his father's care regarding treatment. His concern is his pain in his jaw and that "nothing is being done. " He is also wanting a second oncology opinion and requests Dr. Lakhani. He was informed that Dr. Lakhani may not be electronic technician this weekend, but he does have partners and the son is ok with that. He states Dr. Marx is his PCP and would like to see Dr. Marx. Emma informed him that we could transfer him to a facility that has ENT coverage if they would like. Son and patient refuses to return to [facility] in [place]. They were informed that he could transfer to another facility if they would like ENT to see before next week. At this time, the patient states it is up to his son because "I make poor decisions right now". The son requests to stay here and have Dr. Lakhani consulted. Emma and I talked to Dr. Hitchcock and verbal order received to consult Dr. Marx and Dr. Lakhani. I spoke with Emily at Dr. Marx's office and I spoke to Dr. Salgado (states he will see him tonight or in am). I informed the patient and his ex- that the physicians have been consulted (his son is not in the room at this time). CM will continue to follow and assist with discharge planning/needs. DCP- Discharge Planning Updated by [id number]: Lucy Deshpande on 02/07/18 3:[address] I called Dr. Mercedes to see if he knew of consult. States he tried to see patient last night but he was with his nurse and would see the patient today. His primary nurse, Lana, states she has called Dr. Hernandez's office about consult and spoke with Beckie. I called Dr. Hitchcock's office and his answering service picked up, I have asked them to page him to my number to inform of Dr. Hernandez's response. CM will continue to follow and assist with discharge planning/needs. DCP- Discharge Planning Updated by [email or web address]: Lucy Deshpande on 02/06/18 12:[address] I have talked to Viridiana for the second time at Dr. Hitchcock's office. I informed her that he was still in observation status and does meet inpatient requirement. I also informed her that his progress notes mention possible urology and ENT consult and he did not order consult and no lab is ordered for today. She states she will have him call me. CM will continue to follow and assist with discharge planning/needs. DCP- Discharge Planning Updated by [email or web address]: Lucy Deshpande on 02/04/18 3:[address] Patient Name: DAWN AGUILERA Admission Status: ER Accout number: [id number] Admission Date: 02-04-2018 : 1945 Admission Diagnosis: Attending: RADHA HITCHCOCK Current LOS: 1 Anticipated DC Date: Planned Disposition: Inpatient Rehab Primary Insurance: [facility] MEDICARE SOLUTIONS Discharge Planning Comments: CM met with patient, he is alone in the room. He states he is hard of hearing and would like me to call his son for discharge planning. I called his son, Saroj, for discharge planning. I also explained UGALDE and left a copy for the patient. His son states he lives alone. States that he has declined since he got out of [facility] a few days ago. States he is unable to walk very far without difficulty. States he does not feel his dad can return home at this time and needs rehab. States he was turned down for rehab at [facility], but does not know why. States he would like inpatient rehab at [facility] if accepted. I called Dr. Hitchcock's office to get an order for PT/OT and received answering machine. I informed his primary nurse of need. CM will continue to follow and assist with discharge planning/needs. Clearance Coordinator: Lucy Deshpande DCPIA - Discharge Planning Initial Assessment Updated by [id number]: Lucy Deshpande on 02/04/18 3:02 pm * Is the patient Alert and Oriented? Yes * How many steps to enter\\exit or inside your home? 10 * PCP Araseli * Pharmacy [facility] * Preadmission Environment Home Alone * ADLs Partial Dependent * Partial ADLs (Assistance needed) Ambulation Medication Management * Equipment Wheelchair * List name and contact numbers for known caregivers / representatives who currently or will assist patient after discharge: Saroj - son - [phone] * Verbal permission to speak to the caregivers and representatives has been obtained from the patient. Yes * Community resources currently utilized Home Health * Please name any agencies selected above. [facility] * Additional services required to return to the preadmission environment? Yes * Can the patient safely return to the preadmission environment? No * Has this patient been hospitalized within the prior 30 days at any hospital? Yes Coverage Notice Reviewer: [id number] - Lucy Deshpande Notice Issued Date-Time: 02/04/2018 15:17 Notice Type: Medicare Outpatient Observation Notice Notice Delivered To: Family Member Relationship to Patient: Son Program Coordinator For [employer]idence [employer] Name: Saroj Aguilera Delivery Method: HAND - Hand Delivered Nahed Days: Prior Verbal Notification: Recipient Understood Notice: Yes Recipient Signature: Yes Med Rec Note Co-signed by Attending: Coverage Notice Comment: UGALDE explained to patient and to son on the phone, voiced understanding, copy given to patient. Reviewer: [email or web address] Joey Deshpande Notice Issued Date-Time: 02/20/2018 15:03 Notice Type: IM Discharge Notice Notice Delivered To: Family Member Relationship to Patient: Son Program Coordinator For [employer]idence [employer] Name: Saroj Aguilera Delivery Method: HAND - Hand Delivered Nahed Days: Prior Verbal Notification: Recipient Understood Notice: Yes Recipient Signature: Yes Med Rec Note Co-signed by Attending: Coverage Notice Comment: IMM explained, son gives consent, copy left in room, original placed in MR Last DP export: 02/20/18 2:24 p Patient Name: DAWN AGUILERA Page [id number] at 1653 All edits/amendments must be made on the electronic document DICTATION DATE: 02/21/181651 APARTMENT PROPERTY MANAGER: EAN 02/21/181651 RPT#: [id number] DC DATE:02/20/18 STATUS: DIS IN [facility] [address] [facility] [place] [address] END OF REPORT
--- NOTE | ~2018-02-04 | MORECARE ---
CASE MANAGEMENT DISCHARGE SUMMARY PATIENT: DAWN AGUILERA UNIT: [id number] ADM DATE: 02/06/18 AGE: 72 : 44 SEX: M ROOM/BED: D.2235 AUTHOR: VJDOC PHYSICIAN: REFERRING PHYSICIAN: RADHA HITCHCOCK MD DATE OF SERVICE: 02/07/18 Discharge Plan Patient Name: DAWN AGUILERA Facility: [facility]:[place] : 1945 Planned Disposition: Inpatient Rehab Anticipated Discharge Date: Discharge Date: Expected LOS: Initial Reviewer: [email or web address] Initial Review Date: 02/04/2018 Generated: 02/07/18 4:51 pm Comments DCP- Discharge Planning Updated by [email or web address]: Lucy Deshpande on 02/07/18 2:[address] I called Dr. Mercedes to see if he knew of consult. States he tried to see patient last night but he was with his nurse and would see the patient today. His primary nurse, Lana, states she has called Dr. Hernandez's office about consult and spoke with Beckie. I called Dr. Hitchcock's office and his answering service picked up, I have asked them to page him to my number to inform of Dr. Hernandez's response. CM will continue to follow and assist with discharge planning/needs. DCP- Discharge Planning Updated by [id number]: Lucy Deshpande on 02/06/18 11:[address] I have talked to Viridiana for the second time at Dr. Hitchcock's office. I informed her that he was still in observation status and does meet inpatient requirement. I also informed her that his progress notes mention possible urology and ENT consult and he did not order consult and no lab is ordered for today. She states she will have him call me. CM will continue to follow and assist with discharge planning/needs. DCP- Discharge Planning Updated by [email or web address]: Lucy Charlee on 02/04/18 2:[address] Patient Name: DAWN AGUILERA Admission Status: ER Accout number: [id number] Admission Date: 02-04-2018 : 1945 Admission Diagnosis: Attending: RADHA HITCHCOCK Current LOS: 1 Anticipated DC Date: Planned Disposition: Inpatient Rehab Primary Insurance: [facility] MEDICARE SOLUTIONS Discharge Planning Comments: CM met with patient, he is alone in the room. He states he is hard of hearing and would like me to call his son for discharge planning. I called his son, Saroj, for discharge planning. I also explained UGALDE and left a copy for the patient. His son states he lives alone. States that he has declined since he got out of [facility] a few days ago. States he is unable to walk very far without difficulty. States he does not feel his dad can return home at this time and needs rehab. States he was turned down for rehab at [facility], but does not know why. States he would like inpatient rehab at [facility] if accepted. I called Dr. Hitchcock's office to get an order for PT/OT and received answering machine. I informed his primary nurse of need. CM will continue to follow and assist with discharge planning/needs. Dairy Technologist: Lucy Deshpande DCPIA - Discharge Planning Initial Assessment Updated by [email or web address]: Lucy Deshpande on 02/04/18 3:02 pm * Is the patient Alert and Oriented? Yes * How many steps to enter\exit or inside your home? 10 * PCP Araseli * Pharmacy [facility] * Preadmission Environment Home Alone * ADLs Partial Dependent * Partial ADLs (Assistance needed) Ambulation Medication Management * Equipment Wheelchair * List name and contact numbers for known caregivers / representatives who currently or will assist patient after discharge: Saroj rao - [phone] * Verbal permission to speak to the caregivers and representatives has been obtained from the patient. Yes * Community resources currently utilized Home Health * Please name any agencies selected above. [facility] * Additional services required to return to the preadmission environment? Yes * Can the patient safely return to the preadmission environment? No * Has this patient been hospitalized within the prior 30 days at any hospital? Yes Coverage Notice Reviewer: [id number] - Lucy Deshpande Notice Issued Date-Time: 02/04/2018 15:17 Notice Type: Medicare Outpatient Observation Notice Notice Delivered To: Family Member Relationship to Patient: Son Utility Repairer Name: Saroj Aguilera Delivery Method: HAND - Hand Delivered Nahed Days: Prior Verbal Notification: Recipient Understood Notice: Yes Recipient Signature: Yes Med Rec Note Co-signed by Attending: Coverage Notice Comment: UGALDE explained to patient and to son on the phone, voiced understanding, copy given to patient. Last DP export: 02/06/18 11:45 Patient Name: DAWN AGUILERA Page [id number] at 1551 All edits/amendments must be made on the electronic document DICTATION DATE: 02/07/181549 BED WORKER: EAN 02/07/181549 RPT#: [id number] DC DATE: STATUS: ADM IN [facility] [address] [place] [address] END OF REPORT
--- NOTE | ~2018-02-04 | MORECARE ---
CASE MANAGEMENT DISCHARGE SUMMARY PATIENT: DAWN AGUILERA UNIT: [id number] ADM DATE: 02/06/18 AGE: 72 : 43 SEX: M ROOM/BED: D.2235 AUTHOR: CASSY ZABALA PHYSICIAN: REFERRING PHYSICIAN: RADHA HITCHCOCK MD DATE OF SERVICE: 02/14/18 Discharge Plan Patient Name: DAWN AGUILERA Facility: [facility]:[place] : 1945 Planned Disposition: Inpatient Rehab Anticipated Discharge Date: Discharge Date: Expected LOS: Initial Reviewer: [email or web address] Initial Review Date: 02/04/2018 Generated: 02/14/18 4:53 pm Comments DCP- Discharge Planning Updated by [email or web address]: Lucy Deshpande on 02/14/18 2:[address] Met with patient yesterday and asked him if his son would be in to visit and he states he will be there that afternoon. I did not see his son yesterday, so I called him today to discuss discharge planning. Saroj (his son) was informed that I spoke with Divya in inpatient rehab and he does not meet guidelines for inpatient rehab. He has been ambulating 250 ft with 30% assist or refusing PT. I asked his son if he has another discharge plan and he states No. He seems upset that he does not meet criteria for inpatient rehab. His son states he is out of town this weekend and does not need to think about it now. I will continue to follow along and assist with discharge planning/needs. I did call Divya again and she states he does not meet CMS guidelines for inpatient rehab at this time. DCP- Discharge Planning Updated by [id number]: Lucy Deshpande on 02/11/18 8:[address] I called and spoke to Dariela at Dr. Hernandez's office. Dariela checked with the nurse and she states that Dr. Hernandez is seeing patient after his appointments this morning and should see the patient around lunch time today I notified Mignon, his primary nurse. CM will continue to follow and assist with discharge planning/needs. DCP- Discharge Planning Updated by [email or web address]: Lucy Deshpande on 02/07/18 3:[address] I spoke with Dr. Hitchcock and he was informed that Dr. Hernandez will be off call until at least Saturday. He states to let the son know. I met with patient's son, Saroj, and his ex- is in the room. Also Emma Davis is in the room from administration. The son is very unhappy with his father's care regarding treatment. His concern is his pain in his jaw and that "nothing is being done. " He is also wanting a second oncology opinion and requests Dr. Lakhani. He was informed that Dr. Lakhani may not be composition instructor this weekend, but he does have partners and the son is ok with that. He states Dr. Marx is his PCP and would like to see Dr. Marx. Emma informed him that we could transfer him to a facility that has ENT coverage if they would like. Son and patient refuses to return to [facility] in [place]. They were informed that he could transfer to another facility if they would like ENT to see before next week. At this time, the patient states it is up to his son because "I make poor decisions right now". The son requests to stay here and have Dr. Lakhani consulted. Emma and I talked to Dr. Hitchcock and verbal order received to consult Dr. Marx and Dr. Lakhani. I spoke with Emily at Dr. Marx's office and I spoke to Dr. Salgado (states he will see him tonight or in am). I informed the patient and his ex- that the physicians have been consulted (his son is not in the room at this time). CM will continue to follow and assist with discharge planning/needs. DCP- Discharge Planning Updated by [email or web address]: Lucy Deshpande on 02/07/18 2:[address] I called Dr. Mercedes to see if he knew of consult. States he tried to see patient last night but he was with his nurse and would see the patient today. His primary nurse, Lana, states she has called Dr. Hernandez's office about consult and spoke with Beckie. I called Dr. Hitchcock's office and his answering service picked up, I have asked them to page him to my number to inform of Dr. Hernandez's response. CM will continue to follow and assist with discharge planning/needs. DCP- Discharge Planning Updated by [id number]: Lucy Charlee on 02/06/18 11:[address] I have talked to Viridiana for the second time at Dr. Hitchcock's office. I informed her that he was still in observation status and does meet inpatient requirement. I also informed her that his progress notes mention possible urology and ENT consult and he did not order consult and no lab is ordered for today. She states she will have him call me. CM will continue to follow and assist with discharge planning/needs. DCP- Discharge Planning Updated by [id number]: Lucy Charlee on 02/04/18 2:[address] Patient Name: DAWN AGUILERA Admission Status: ER Accout number: [id number] Admission Date: 02-04-2018 : 1945 Admission Diagnosis: Attending: RADHA HITCHCOCK Current LOS: 1 Anticipated DC Date: Planned Disposition: Inpatient Rehab Primary Insurance: [facility] MEDICARE SOLUTIONS Discharge Planning Comments: CM met with patient, he is alone in the room. He states he is hard of hearing and would like me to call his son for discharge planning. I called his son, Saroj, for discharge planning. I also explained UGALDE and left a copy for the patient. His son states he lives alone. States that he has declined since he got out of [facility] a few days ago. States he is unable to walk very far without difficulty. States he does not feel his dad can return home at this time and needs rehab. States he was turned down for rehab at [facility], but does not know why. States he would like inpatient rehab at [facility] if accepted. I called Dr. Hitchcock's office to get an order for PT/OT and received answering machine. I informed his primary nurse of need. CM will continue to follow and assist with discharge planning/needs. Belt Turner: Lucy Deshpande DCPIA - Discharge Planning Initial Assessment Updated by [email or web address]: Lucy Deshpande on 02/04/18 3:02 pm * Is the patient Alert and Oriented? Yes * How many steps to enter\\exit or inside your home? 10 * PCP Araseli * Pharmacy [facility] * Preadmission Environment Home Alone * ADLs Partial Dependent * Partial ADLs (Assistance needed) Ambulation Medication Management * Equipment Wheelchair * List name and contact numbers for known caregivers / representatives who currently or will assist patient after discharge: Saroj rao - [phone] * Verbal permission to speak to the caregivers and representatives has been obtained from the patient. Yes * Community resources currently utilized Home Health * Please name any agencies selected above. [facility] * Additional services required to return to the preadmission environment? Yes * Can the patient safely return to the preadmission environment? No * Has this patient been hospitalized within the prior 30 days at any hospital? Yes Coverage Notice Reviewer: [id number] Joey Deshpande Notice Issued Date-Time: 02/04/2018 15:17 Notice Type: Medicare Outpatient Observation Notice Notice Delivered To: Family Member Relationship to Patient: Son Nursing Unit Manager Name: Saroj Aguilera Delivery Method: HAND - Hand Delivered Nahed Days: Prior Verbal Notification: Recipient Understood Notice: Yes Recipient Signature: Yes Med Rec Note Co-signed by Attending: Coverage Notice Comment: UGALDE explained to patient and to son on the phone, voiced understanding, copy given to patient. Last DP export: 02/11/18 8:09 Patient Name: DAWN AGUILERA Page [id number] at 1553 All edits/amendments must be made on the electronic document DICTATION DATE: 02/14/18 155 PRESSING MACHINE OPERATOR: EAN 02/14/181551 RPT#: [id number] DC DATE: STATUS: ADM IN [facility] [address] [place] [address] END OF REPORT
--- NOTE | ~2018-02-04 | MORECARE ---
CASE MANAGEMENT DISCHARGE SUMMARY PATIENT: DAWN AGUILERA UNIT: [id number] ADM DATE: 02/06/18 AGE: 72 : 43 SEX: M ROOM/BED: D.2235 AUTHOR: VJDOC PHYSICIAN: REFERRING PHYSICIAN: RADHA HITCHCOCK MD DATE OF SERVICE: 02/19/18 Discharge Plan Patient Name: DAWN AGUILERA Facility: [facility]:[place] : 1945 Planned Disposition: Inpatient Rehab Anticipated Discharge Date: Discharge Date: Expected LOS: Initial Reviewer: [id number] Initial Review Date: 02/04/2018 Generated: 02/19/18 2:58 pm Comments DCP- Discharge Planning Updated by [email or web address]: Lucy Deshpande on 02/19/18 12:[address] Rose from [facility] and [facility] called and states they will not take patient for snf. Rose states they will take him for Hospice with him signing up for Medicaid or private pay for room rate. I called [facility] and Danna states they do not take [facility] [employer]. I called Lucille Bishop and she states they do take his insurance at [facility]. Lucille states they can take him to a skilled bed with a PEG tube per his insurance and will review clinical for decision. I met with patient's son and he agrees with plan to [facility] for snf. I did discuss hospice with his son and he states he has been considering hospice, but is not ready at this time. I discussed that he could revoke hospice at any time for hospital admits and procedures if needed and also the difference between GIP and home hospice or hospice in a facility. CM will continue to follow and assist with discharge planning/needs. DCP- Discharge Planning Updated by [id number]: Lucy Deshpande on 02/17/18 3:[address] Met son in the room and gave him a list of SNF with private rooms. He chose [facility]. I spoke with Rose at [facility] and Rehab and gave her a verbal report and clinical faxed. I informed Rose he is getting a PEG tube in the morning. CM will continue to follow and assist with discharge planning/needs. DCP- Discharge Planning Updated by [id number]: Lucy Deshpande on 02/17/18 9:[address] Met with son in the room per his request. Patient is sleeping. Son is asking me to have him evaluated for inpatient rehab because his father is now unable to get to the bathroom. I read him the note from inpatient rehab and explained that it's a Medicare requirement to also be able to participate in rehab for 3 hours a day and with his pain and prior PT notes, it is unlikely that he can participate in 3 hours a day. Saroj (patient's son) becomes angry and states "it's not because of his pain, it's because we are not doing anything for him." I informed him that I would ask inpatient rehab to come and speak with him. I called Divya and informed her of above and he is waiting to talk with them. He also tells me he has been waiting to talk to me for 14 hours and I explained to him that I came in at 8:30 this morning and was just told that you were wanting to speak with me. He has been unwilling to speak about hospice in the past and on Saturday, so I did not speak to him about hospice at this time. I spoke with Dr. Hitchcock about plan for patient. Dr. Hitchcock states he needs to go home or intermediate with hospice. He states he spoke with son this weekend about it and will be here around 3:00 today to speak to him again. I informed his son that Dr. Hitchcock plans on being here at 3 today. Offered him coffee or something to make him more comfortable and he declines. CM will continue to follow and assist with discharge planning/needs. DCP- Discharge Planning Updated by [id number]: Lucy Deshpande on 02/14/18 3:[address] Met with patient yesterday and asked him if his son would be in to visit and he states he will be there that afternoon. I did not see his son yesterday, so I called him today to discuss discharge planning. Saroj (his son) was informed that I spoke with Divya in inpatient rehab and he does not meet guidelines for inpatient rehab. He has been ambulating 250 ft with 30% assist or refusing PT. I asked his son if he has another discharge plan and he states No. He seems upset that he does not meet criteria for inpatient rehab. His son states he is out of town this weekend and does not need to think about it now. I will continue to follow along and assist with discharge planning/needs. I did call Divya again and she states he does not meet CMS guidelines for inpatient rehab at this time. DCP- Discharge Planning Updated by [email or web address]: Lucy Deshpande on 02/11/18 9:[address] I called and spoke to Dariela at Dr. Hernandez's office. Dariela checked with the nurse and she states that Dr. Hernandez is seeing patient after his appointments this morning and should see the patient around lunch time today I notified Mignon, his primary nurse. CM will continue to follow and assist with discharge planning/needs. DCP- Discharge Planning Updated by [id number]: Lucy Charlee on 02/07/18 4:[address] I spoke with Dr. Hitchcock and he was informed that Dr. Hernandez will be off call until at least Saturday. He states to let the son know. I met with patient's son, Saroj, and his ex- is in the room. Also Emma Davis is in the room from administration. The son is very unhappy with his father's care regarding treatment. His concern is his pain in his jaw and that "nothing is being done. " He is also wanting a second oncology opinion and requests Dr. Lakhani. He was informed that Dr. Lakhani may not be cone treater this weekend, but he does have partners and the son is ok with that. He states Dr. Marx is his PCP and would like to see Dr. Marx. Emma informed him that we could transfer him to a facility that has ENT coverage if they would like. Son and patient refuses to return to [facility] in [place]. They were informed that he could transfer to another facility if they would like ENT to see before next week. At this time, the patient states it is up to his son because "I make poor decisions right now". The son requests to stay here and have Dr. Lakhani consulted. Emma and I talked to Dr. Hitchcock and verbal order received to consult Dr. Marx and Dr. Lakhani. I spoke with Emily at Dr. Marx's office and I spoke to Dr. Salgado (states he will see him tonight or in am). I informed the patient and his ex- that the physicians have been consulted (his son is not in the room at this time). CM will continue to follow and assist with discharge planning/needs. DCP- Discharge Planning Updated by [email or web address]: Lucy Deshpande on 02/07/18 3:[address] I called Dr. Mercedes to see if he knew of consult. States he tried to see patient last night but he was with his nurse and would see the patient today. His primary nurse, Lana, states she has called Dr. Hernandez's office about consult and spoke with Beckie. I called Dr. Hitchcock's office and his answering service picked up, I have asked them to page him to my number to inform of Dr. Hernandez's response. CM will continue to follow and assist with discharge planning/needs. DCP- Discharge Planning Updated by [id number]: Lucy Deshpande on 02/06/18 12:[address] I have talked to Viridiana for the second time at Dr. Hitchcock's office. I informed her that he was still in observation status and does meet inpatient requirement. I also informed her that his progress notes mention possible urology and ENT consult and he did not order consult and no lab is ordered for today. She states she will have him call me. CM will continue to follow and assist with discharge planning/needs. DCP- Discharge Planning Updated by [id number]: Lucy Deshpande on 02/04/18 3:[address] Patient Name: DAWN AGUILERA Admission Status: ER Accout number: [id number] Admission Date: 02-04-2018 : 1945 Admission Diagnosis: Attending: RADHA HITCHCOCK Current LOS: 1 Anticipated DC Date: Planned Disposition: Inpatient Rehab Primary Insurance: [facility] MEDICARE SOLUTIONS Discharge Planning Comments: CM met with patient, he is alone in the room. He states he is hard of hearing and would like me to call his son for discharge planning. I called his son, Saroj, for discharge planning. I also explained UGALDE and left a copy for the patient. His son states he lives alone. States that he has declined since he got out of [facility] a few days ago. States he is unable to walk very far without difficulty. States he does not feel his dad can return home at this time and needs rehab. States he was turned down for rehab at [facility], but does not know why. States he would like inpatient rehab at [facility] if accepted. I called Dr. Hitchcock's office to get an order for PT/OT and received answering machine. I informed his primary nurse of need. CM will continue to follow and assist with discharge planning/needs. Hvac Sheet Metal Installer: Lucy Deshpande DCPIA - Discharge Planning Initial Assessment Updated by [id number]: Lucy Deshpande on 02/04/18 3:02 pm * Is the patient Alert and Oriented? Yes * How many steps to enter\\exit or inside your home? 10 * PCP Araseli * Pharmacy [facility] * Preadmission Environment Home Alone * ADLs Partial Dependent * Partial ADLs (Assistance needed) Ambulation Medication Management * Equipment Wheelchair * List name and contact numbers for known caregivers / representatives who currently or will assist patient after discharge: Saroj rao - [phone] * Verbal permission to speak to the caregivers and representatives has been obtained from the patient. Yes * Community resources currently utilized Home Health * Please name any agencies selected above. [facility] * Additional services required to return to the preadmission environment? Yes * Can the patient safely return to the preadmission environment? No * Has this patient been hospitalized within the prior 30 days at any hospital? Yes Coverage Notice Reviewer: [id number] - Lucy Deshpande Notice Issued Date-Time: 02/04/2018 15:17 Notice Type: Medicare Outpatient Observation Notice Notice Delivered To: Family Member Relationship to Patient: Son Waste/Materials Exchange Specialist Name: Saroj Aguilera Delivery Method: HAND - Hand Delivered Nahed Days: Prior Verbal Notification: Recipient Understood Notice: Yes Recipient Signature: Yes Med Rec Note Co-signed by Attending: Coverage Notice Comment: UGALDE explained to patient and to son on the phone, voiced understanding, copy given to patient. Last DP export: 02/19/18 12:50 p Patient Name: DAWN AGUILERA Page 25061 at 1358 All edits/amendments must be made on the electronic document DICTATION DATE: 02/19/18 8698 FIRER LOCOMOTIVE CRANE: EAN 02/19/18 1352 RPT#: [id number] DC DATE: STATUS: ADM IN [facility] [address] [place] [address] END OF REPORT
--- NOTE | ~2018-02-04 | MORECARE ---
CASE MANAGEMENT DISCHARGE SUMMARY PATIENT: DAWN BOLTON UNIT: [id number] ADM DATE: 02/04/18 AGE: 72 : 43 SEX: M ROOM/BED: D.2235 AUTHOR: CASSY ZABALA PHYSICIAN: REFERRING PHYSICIAN: RADHA HITCHCOCK MD DATE OF SERVICE: 02/04/18 Discharge Plan Patient Name: DAWN BOLTON [facility] [facility] 1945 Planned Disposition: Inpatient Rehab Anticipated Discharge Date: Discharge Date: Expected LOS: Initial Reviewer: [email or web address] Initial Review Date: 02/04/2018 Generated: 02/04/18 4:05 pm DCPIA - Discharge Planning Initial Assessment Updated by [email or web address]: Lucy Deshpande on 02/04/18 3:02 pm * Is the patient Alert and Oriented? Yes * How many steps to enter\exit or inside your home? 10 * PCP Araseli * Pharmacy [facility] * Preadmission Environment Home Alone * ADLs Partial Dependent * Partial ADLs (Assistance needed) Ambulation Medication Management * Equipment Wheelchair * List name and contact numbers for known caregivers / representatives who currently or will assist patient after discharge: Saroj [facility] - [phone] * Verbal permission to speak to the caregivers and representatives has been obtained from the patient. Yes * Community resources currently utilized Home Health * Please name any agencies selected above. [facility] * Additional services required to return to the preadmission environment? Yes * Can the patient safely return to the preadmission environment? No * Has this patient been hospitalized within the prior 30 days at any hospital? Yes Patient Name: DAWN BOLTON Page [id number] at 1506 All edits/amendments must be made on the electronic document DICTATION DATE: 02/04/18 150 BUTCHER HELPER: EAN 02/04/18 1505 RPT#: [id number] DC DATE: STATUS: ADM IN [facility] [address] [place] [address] END OF REPORT
--- NOTE | ~2018-02-04 | MORECARE ---
CASE MANAGEMENT DISCHARGE SUMMARY PATIENT: DAWN AGUILERA UNIT: [id number] ADM DATE: 02/06/18 AGE: 72 : 44 SEX: M ROOM/BED: D.2235 AUTHOR: VJDOC PHYSICIAN: REFERRING PHYSICIAN: RADHA HITCHCOCK MD DATE OF SERVICE: 02/17/18 Discharge Plan Patient Name: DAWN AGUILERA Facility: [facility]:[place] : 1945 Planned Disposition: Inpatient Rehab Anticipated Discharge Date: Discharge Date: Expected LOS: Initial Reviewer: [email or web address] Initial Review Date: 02/04/2018 Generated: 02/17/18 11:21 am Comments DCP- Discharge Planning Updated by [id number]: Lucy Deshpande on 02/17/18 9:[address] Met with son in the room per his request. Patient is sleeping. Son is asking me to have him evaluated for inpatient rehab because his father is now unable to get to the bathroom. I read him the note from inpatient rehab and explained that it's a Medicare requirement to also be able to participate in rehab for 3 hours a day and with his pain and prior PT notes, it is unlikely that he can participate in 3 hours a day. Saroj (patient's son) becomes angry and states "it's not because of his pain, it's because we are not doing anything for him." I informed him that I would ask inpatient rehab to come and speak with him. I called Divya and informed her of above and he is waiting to talk with them. He also tells me he has been waiting to talk to me for 14 hours and I explained to him that I came in at 8:30 this morning and was just told that you were wanting to speak with me. He has been unwilling to speak about hospice in the past and on Saturday, so I did not speak to him about hospice at this time. I spoke with Dr. Hitchcock about plan for patient. Dr. Hitchcock states he needs to go home or [facility] with hospice. He states he spoke with son this weekend about it and will be here around 3:00 today to speak to him again. I informed his son that Dr. Hitchcock plans on being here at 3 today. Offered him coffee or something to make him more comfortable and he declines. CM will continue to follow and assist with discharge planning/needs. DCP- Discharge Planning Updated by [id number]: Lucy Deshpande on 02/14/18 3:[address] Met with patient yesterday and asked him if his son would be in to visit and he states he will be there that afternoon. I did not see his son yesterday, so I called him today to discuss discharge planning. Saroj (his son) was informed that I spoke with Divya in inpatient rehab and he does not meet guidelines for inpatient rehab. He has been ambulating 250 ft with 30% assist or refusing PT. I asked his son if he has another discharge plan and he states No. He seems upset that he does not meet criteria for inpatient rehab. His son states he is out of town this weekend and does not need to think about it now. I will continue to follow along and assist with discharge planning/needs. I did call Divya again and she states he does not meet CMS guidelines for inpatient rehab at this time. DCP- Discharge Planning Updated by [email or web address]: Lucy Avinamatt on 02/11/18 9:[address] I called and spoke to Dariela at Dr. Hernandez's office. Dariela checked with the nurse and she states that Dr. Hernandez is seeing patient after his appointments this morning and should see the patient around lunch time today I notified Mignon, his primary nurse. CM will continue to follow and assist with discharge planning/needs. DCP- Discharge Planning Updated by [id number]: Lucy Charlee on 02/07/18 4:[address] I spoke with Dr. Hitchcock and he was informed that Dr. Hernandez will be off call until at least Saturday. He states to let the son know. I met with patient's son, Saroj, and his ex- is in the room. Also Emma aDvis is in the room from administration. The son is very unhappy with his father's care regarding treatment. His concern is his pain in his jaw and that "nothing is being done. " He is also wanting a second oncology opinion and requests Dr. Lakhani. He was informed that Dr. Lakhani may not be retail and promotions coordinator this weekend, but he does have partners and the son is ok with that. He states Dr. Marx is his PCP and would like to see Dr. Marx. Emma informed him that we could transfer him to a facility that has ENT coverage if they would like. Son and patient refuses to return to [facility] in [place]. They were informed that he could transfer to another facility if they would like ENT to see before next week. At this time, the patient states it is up to his son because "I make poor decisions right now". The son requests to stay here and have Dr. Lakhani consulted. Emma and I talked to Dr. Hitchcock and verbal order received to consult Dr. Marx and Dr. Lakhani. I spoke with Emily at Dr. Marx's office and I spoke to Dr. Salgado (states he will see him tonight or in am). I informed the patient and his ex- that the physicians have been consulted (his son is not in the room at this time). CM will continue to follow and assist with discharge planning/needs. DCP- Discharge Planning Updated by [email or web address]: Lucy Deshpande on 02/07/18 3:[address] I called Dr. Mercedes to see if he knew of consult. States he tried to see patient last night but he was with his nurse and would see the patient today. His primary nurse, Lana, states she has called Dr. Hernandez's office about consult and spoke with Beckie. I called Dr. Hitchcock's office and his answering service picked up, I have asked them to page him to my number to inform of Dr. Hernandez's response. CM will continue to follow and assist with discharge planning/needs. DCP- Discharge Planning Updated by [id number]: Lucy Deshpande on 02/06/18 12:[address] I have talked to Viridiana for the second time at Dr. Hitchcock's office. I informed her that he was still in observation status and does meet inpatient requirement. I also informed her that his progress notes mention possible urology and ENT consult and he did not order consult and no lab is ordered for today. She states she will have him call me. CM will continue to follow and assist with discharge planning/needs. DCP- Discharge Planning Updated by [email or web address]: Lucy Deshpande on 02/04/18 3:[address] Patient Name: DAWN AGUILERA Admission Status: ER Accout number: [id number] Admission Date: 02-04-2018 : 1945 Admission Diagnosis: Attending: RADHA HITCHCOCK Current LOS: 1 Anticipated DC Date: Planned Disposition: Inpatient Rehab Primary Insurance: [facility] [employer] Discharge Planning Comments: CM met with patient, he is alone in the room. He states he is hard of hearing and would like me to call his son for discharge planning. I called his son, Saroj, for discharge planning. I also explained UGALDE and left a copy for the patient. His son states he lives alone. States that he has declined since he got out of [facility] a few days ago. States he is unable to walk very far without difficulty. States he does not feel his dad can return home at this time and needs rehab. States he was turned down for rehab at [facility], but does not know why. States he would like inpatient rehab at [facility] if accepted. I called Dr. Hitchcock's office to get an order for PT/OT and received answering machine. I informed his primary nurse of need. CM will continue to follow and assist with discharge planning/needs. Airborne Mission Systems: Lucy Deshpande DCPIA - Discharge Planning Initial Assessment Updated by [email or web address]: Lucy Deshpande on 02/04/18 3:02 pm * Is the patient Alert and Oriented? Yes * How many steps to enter\\exit or inside your home? 10 * PCP Araseli * Pharmacy [facility] * Preadmission Environment Home Alone * ADLs Partial Dependent * Partial ADLs (Assistance needed) Ambulation Medication Management * Equipment Wheelchair * List name and contact numbers for known caregivers / representatives who currently or will assist patient after discharge: Saroj rao - [phone] * Verbal permission to speak to the caregivers and representatives has been obtained from the patient. Yes * Community resources currently utilized Home Health * Please name any agencies selected above. [place] [facility] * Additional services required to return to the preadmission environment? Yes * Can the patient safely return to the preadmission environment? No * Has this patient been hospitalized within the prior 30 days at any hospital? Yes Coverage Notice Reviewer: [email or web address] - Lucy Deshpande Notice Issued Date-Time: 02/04/2018 15:17 Notice Type: Medicare Outpatient Observation Notice Notice Delivered To: Family Member Relationship to Patient: Son Spice Fumigator Name: Saroj Aguilera Delivery Method: HAND - Hand Delivered Nahed Days: Prior Verbal Notification: Recipient Understood Notice: Yes Recipient Signature: Yes Med Rec Note Co-signed by Attending: Coverage Notice Comment: TRAM explained to patient and to son on the phone, voiced understanding, copy given to patient. Last DP export: 02/14/18 3:53 p Patient Name: DAWN AGUILERA Page 14545 at 1021 All edits/amendments must be made on the electronic document DICTATION DATE: 02/17/18 1020 FINISHED CIGAR MAKER: EAN 02/17/18 1020 RPT#: [id number] DC DATE: STATUS: ADM IN [facility] [address] [place] [address] END OF REPORT
--- NOTE | ~2018-02-04 | MORECARE ---
CASE MANAGEMENT DISCHARGE SUMMARY PATIENT: DAWN AGUILERA UNIT: [id number] ADM DATE: 02/06/18 AGE: 72 : 44 SEX: M ROOM/BED: D.2235 AUTHOR: VJDOC PHYSICIAN: REFERRING PHYSICIAN: RADHA HITCHCOCK MD DATE OF SERVICE: 02/11/18 Discharge Plan Patient Name: DAWN AGUILERA Facility: [facility]:[place] : 1945 Planned Disposition: Inpatient Rehab Anticipated Discharge Date: Discharge Date: Expected LOS: Initial Reviewer: [email or web address] Initial Review Date: 02/04/2018 Generated: 02/11/18 10:09 am Comments DCP- Discharge Planning Updated by [email or web address]: Lucy Deshpande on 02/11/18 8:[address] I called and spoke to Dariela at Dr. Hernandez's office. Dariela checked with the nurse and she states that Dr. Hernandez is seeing patient after his appointments this morning and should see the patient around lunch time today I notified Mignon, his primary nurse. CM will continue to follow and assist with discharge planning/needs. DCP- Discharge Planning Updated by [email or web address]: Lucy Deshpande on 02/07/18 3:[address] I spoke with Dr. Hitchcock and he was informed that Dr. Hernandez will be off call until at least Saturday. He states to let the son know. I met with patient's son, Saroj, and his ex- is in the room. Also Emma Susan is in the room from administration. The son is very unhappy with his father's care regarding treatment. His concern is his pain in his jaw and that "nothing is being done. " He is also wanting a second oncology opinion and requests Dr. Lakhani. He was informed that Dr. Lakhani may not be transportation officer this weekend, but he does have partners and the son is ok with that. He states Dr. Marx is his PCP and would like to see Dr. Marx. Emma informed him that we could transfer him to a facility that has ENT coverage if they would like. Son and patient refuses to return to [facility]. They were informed that he could transfer to another facility if they would like ENT to see before next week. At this time, the patient states it is up to his son because "I make poor decisions right now". The son requests to stay here and have Dr. Lakhani consulted. Emma and I talked to Dr. Hitchcock and verbal order received to consult Dr. Marx and Dr. Lakhani. I spoke with Emily at Dr. Marx's office and I spoke to Dr. Salgado (states he will see him tonight or in am). I informed the patient and his ex- that the physicians have been consulted (his son is not in the room at this time). CM will continue to follow and assist with discharge planning/needs. DCP- Discharge Planning Updated by [id number]: Lucy Deshpande on 02/07/18 2:[address] I called Dr. Mercedes to see if he knew of consult. States he tried to see patient last night but he was with his nurse and would see the patient today. His primary nurse, Lana, states she has called Dr. Hernandez's office about consult and spoke with Beckie. I called Dr. Hitchcock's office and his answering service picked up, I have asked them to page him to my number to inform of Dr. Hernandez's response. CM will continue to follow and assist with discharge planning/needs. DCP- Discharge Planning Updated by [email or web address]: Lucy Deshpande on 02/06/18 11:[address] I have talked to Viridiana for the second time at Dr. Hitchcock's office. I informed her that he was still in observation status and does meet inpatient requirement. I also informed her that his progress notes mention possible urology and ENT consult and he did not order consult and no lab is ordered for today. She states she will have him call me. CM will continue to follow and assist with discharge planning/needs. DCP- Discharge Planning Updated by [id number]: Lucy Charlee on 02/04/18 2:[address] Patient Name: DAWN AGUILERA Admission Status: ER Accout number: [id number] Admission Date: 02-04-2018 : 1945 Admission Diagnosis: Attending: RADHA HITCHCOCK Current LOS: 1 Anticipated DC Date: Planned Disposition: Inpatient Rehab Primary Insurance: [facility] MEDICARE SOLUTIONS Discharge Planning Comments: CM met with patient, he is alone in the room. He states he is hard of hearing and would like me to call his son for discharge planning. I called his son, Saroj, for discharge planning. I also explained UGALDE and left a copy for the patient. His son states he lives alone. States that he has declined since he got out of [facility] hospital a few days ago. States he is unable to walk very far without difficulty. States he does not feel his dad can return home at this time and needs rehab. States he was turned down for rehab at [facility], but does not know why. States he would like inpatient rehab at [facility] if accepted. I called Dr. Hitchcock's office to get an order for PT/OT and received answering machine. I informed his primary nurse of need. CM will continue to follow and assist with discharge planning/needs. Painting Manager: Lucy Deshpande DCPIA - Discharge Planning Initial Assessment Updated by [id number]: Lucy Deshpande on 02/04/18 3:02 pm * Is the patient Alert and Oriented? Yes * How many steps to enter\\exit or inside your home? 10 * PCP Araseli * Pharmacy [facility] * Preadmission Environment Home Alone * ADLs Partial Dependent * Partial ADLs (Assistance needed) Ambulation Medication Management * Equipment Wheelchair * List name and contact numbers for known caregivers / representatives who currently or will assist patient after discharge: Saroj rao - [phone] * Verbal permission to speak to the caregivers and representatives has been obtained from the patient. Yes * Community resources currently utilized Home Health * Please name any agencies selected above. [facility] * Additional services required to return to the preadmission environment? Yes * Can the patient safely return to the preadmission environment? No * Has this patient been hospitalized within the prior 30 days at any hospital? Yes Coverage Notice Reviewer: [email or web address] - Lucy Deshpande Notice Issued Date-Time: 02/04/2018 15:17 Notice Type: Medicare Outpatient Observation Notice Notice Delivered To: Family Member Relationship to Patient: Son Bus And Trolley Dispatcher Name: Saroj Aguilera Delivery Method: HAND - Hand Delivered Nahed Days: Prior Verbal Notification: Recipient Understood Notice: Yes Recipient Signature: Yes Med Rec Note Co-signed by Attending: Coverage Notice Comment: UGALDE explained to patient and to son on the phone, voiced understanding, copy given to patient. Last DP export: 02/07/18 4:00 Patient Name: DAWN AGUILERA Page 28039 at 0909 All edits/amendments must be made on the electronic document DICTATION DATE: 02/11/18908 PLASTICS DESIGN ENGINEER: EAN 02/11/18908 RPT#: [id number] DC DATE: STATUS: ADM IN [facility] [address] [place] [address] END OF REPORT
[2018-02-04] MEDS ORDERED: ASPIRIN325 MG PO (00:20)
[2018-02-04] MEDS ORDERED: ZOVIRAX800 MG PO (00:20)
[2018-02-04] MEDS ORDERED: COREG6.25 MG PO (00:21)
[2018-02-04] MEDS ORDERED: LOZOL1.25 MG PO (00:21)
[2018-02-04] MEDS ORDERED: BASAGLAR K100 UNIT/1 (00:22)
[2018-02-04] MEDS ORDERED: MEGACE400 MG/10 PO (00:23)
[2018-02-04] MEDS ORDERED: LISINOPRIL5 MG PO (00:23)
[2018-02-04] MEDS ORDERED: METFORMIN HCL500 M1 PO (00:23)
[2018-02-04] MEDS ORDERED: PROBIOTIC250 MG PO (00:24)
[2018-02-04] MEDS ORDERED: MULTI-DAY VITAM1 TAB PO (00:24)
[2018-02-04] MEDS ORDERED: SUTENT50 MG PO (00:24)
[2018-02-04] MEDS ORDERED: SYNTHROID25 MCG PO (00:24)
[2018-02-04] MEDS ORDERED: FENTORA100 MCG TRANSDERM (00:26)
[2018-02-04 01:15] LABS: BASOPHILS 0.2 % (0-2); EOSINOPHILS 3.1 % (0-7); HEMATOCRIT 27.5 % (42.0-54.0); HEMOGLOBIN 9.2 g/dL (13.5-17.5); IMMATURE GRANULOCYTES 0.4 % (0-5); LYMPHOCYTES 14.9 % (15-50); MCH 28.8 pg (26.0-34.0); MCHC 33.5 g/dL (31.0-37.0); MCV 86.2 fL (80.0-100.0); MEAN PLATELET VOLUME 8.4 fL (7.4-10.4); MONOCYTES 6.1 % (2-11); NEUTROPHILS 75.3 % (40-80); PLATELET COUNT 104 10x3/uL (130-400); RBC 3.19 10x6/uL (4.20-6.10); RDW 17.7 % (11.5-14.5); WBC 4.6 10x3/uL (4.8-10.8)
[2018-02-04 01:23] LABS: APPEARANCE CLOUDY (CLEAR); BILIRUBIN NEGATIVE (NEGATIVE); COLOR RED (YELLOW); GLUCOSE NEGATIVE (NEGATIVE); KETONE NEGATIVE (NEGATIVE); NITRITE NEGATIVE (NEGATIVE); PROTEIN 3+ mg/dL (NEGATIVE); SPECIFIC GRAVITY 1.005 (1.005-1.020); UROBILINOGEN NORMAL (NORMAL)
[2018-02-04 01:25] LABS: BACTERIA NONE SEEN /hpf (NONE SEEN); EPITHELIAL CELLS 0-5 /hpf (0-5); RED CELLS - URINE >50 /hpf (0-5); WHITE CELLS - URINE 0-5 /hpf (0-5)
[2018-02-04 01:39] LABS: ALBUMIN 1.8 g/dL (3.4-5.0); ANION GAP 17.7 mmol/L (8-16); BILIRUBIN - TOTAL 0.28 mg/dL (0.2-1.3); CALCIUM 8.6 mg/dL (8.5-10.1); CARBON DIOXIDE 20.6 mmol/L (21.0-32.0); CREATININE - SERUM 1.3 mg/dL (0.6-1.3); POTASSIUM - SERUM 5.3 mmol/L (3.5-5.1); PROTEIN - SERUM 5.7 g/dL (6.4-8.2)
[2018-02-05 04:10] VITALS: BP 176/68
[2018-02-05 09:07] VITALS: BP 124/63
[2018-02-05 12:29] VITALS: BP 126/74
[2018-02-05 17:14] VITALS: BP 160/72
[2018-02-05 20:00] VITALS: BP 161/66
[2018-02-06 04:00] VITALS: BP 179/98
[2018-02-06 08:34] VITALS: BP 176/83
[2018-02-06 15:45] VITALS: BP 169/72
[2018-02-06 16:21] LABS: BASOPHILS 0 % (0-2); EOSINOPHILS 0.1 % (0-7); HEMATOCRIT 21.1 % (42.0-54.0); IMMATURE GRANULOCYTES 0.2 % (0-5); LYMPHOCYTES 7.9 % (15-50); MCH 29.2 pg (26.0-34.0); MCHC 33.6 g/dL (31.0-37.0); MCV 86.8 fL (80.0-100.0); MEAN PLATELET VOLUME 8.4 fL (7.4-10.4); MONOCYTES 4.6 % (2-11); NEUTROPHILS 87.2 % (40-80); PLATELET COUNT 118 10x3/uL (130-400); RBC 2.43 10x6/uL (4.20-6.10); RDW 18.1 % (11.5-14.5); WBC 8.3 10x3/uL (4.8-10.8)
[2018-02-06 16:24] LABS: HEMOGLOBIN 7.1 g/dL (13.5-17.5)
[2018-02-06 16:29] LABS: ANION GAP 15.2 mmol/L (8-16); CALCIUM 8.1 mg/dL (8.5-10.1); CARBON DIOXIDE 18.1 mmol/L (21.0-32.0); CREATININE - SERUM 1.1 mg/dL (0.6-1.3); POTASSIUM - SERUM 4.3 mmol/L (3.5-5.1)
[2018-02-06 20:00] VITALS: BP 162/85
[2018-02-07 06:26] LABS: HEMATOCRIT 27.6 % (42.0-54.0); HEMOGLOBIN 9.7 g/dL (13.5-17.5); LYMPHOCYTES 7.1 % (15-50); MCH 29.9 pg (26.0-34.0); MCHC 35.1 g/dL (31.0-37.0); MCV 85.2 fL (80.0-100.0); MEAN PLATELET VOLUME 7.9 fL (7.4-10.4); NEUTROPHILS 88.9 % (40-80); PLATELET COUNT 149 10x3/uL (130-400); RBC 3.24 10x6/uL (4.20-6.10); RDW 16.7 % (11.5-14.5); WBC 9.2 10x3/uL (4.8-10.8)
[2018-02-07 06:35] LABS: ANION GAP 13.7 mmol/L (8-16); CALCIUM 8.2 mg/dL (8.5-10.1); CARBON DIOXIDE 21.1 mmol/L (21.0-32.0); CREATININE - SERUM 1.3 mg/dL (0.6-1.3); POTASSIUM - SERUM 4.8 mmol/L (3.5-5.1)
[2018-02-07 07:55] VITALS: BP 171/82
[2018-02-07 17:35] VITALS: BP 178/92
[2018-02-07 20:23] VITALS: BP 189/84
[2018-02-08 00:25] VITALS: BP 191/96
[2018-02-08 04:43] VITALS: BP 140/72
[2018-02-08 05:29] LABS: BASOPHILS 0.1 % (0-2); EOSINOPHILS 0.6 % (0-7); HEMATOCRIT 29.5 % (42.0-54.0); IMMATURE GRANULOCYTES 0.2 % (0-5); LYMPHOCYTES 7.6 % (15-50); MCH 29.1 pg (26.0-34.0); MCHC 33.9 g/dL (31.0-37.0); MCV 85.8 fL (80.0-100.0); MEAN PLATELET VOLUME 8.6 fL (7.4-10.4); MONOCYTES 3.7 % (2-11); NEUTROPHILS 87.8 % (40-80); RBC 3.44 10x6/uL (4.20-6.10); RDW 17.1 % (11.5-14.5); WBC 9.6 10x3/uL (4.8-10.8)
[2018-02-08 05:36] LABS: PLATELET COUNT 113 10x3/uL (130-400)
[2018-02-08 05:47] LABS: CALCIUM 8.4 mg/dL (8.5-10.1); CARBON DIOXIDE 19.6 mmol/L (21.0-32.0); CHLORIDE - SERUM 105 mmol/L (98-107); SODIUM 136 mmol/L (136-145); eGFR NON AFRICAN AMERICAN 78 mL/min (90-120)
[2018-02-08 05:49] LABS: CALC OSMOLALITY 274 mosm/kg (275-300); GLUCOSE 130 mg/dL (74-106); UREA NITROGEN 16 mg/dL (7-18)
[2018-02-08 07:51] VITALS: BP 178/91
[2018-02-08 12:55] VITALS: BP 167/77
[2018-02-08 20:00] VITALS: BP 162/78
[2018-02-09] VITALS: BP 173/89
[2018-02-09 04:00] VITALS: BP 163/81
[2018-02-09 06:09] LABS: BASOPHILS 0.1 % (0-2); EOSINOPHILS 0.2 % (0-7); HEMATOCRIT 27.9 % (42.0-54.0); HEMOGLOBIN 9.4 g/dL (13.5-17.5); IMMATURE GRANULOCYTES 0.4 % (0-5); LYMPHOCYTES 6.5 % (15-50); MCH 28.9 pg (26.0-34.0); MCHC 33.7 g/dL (31.0-37.0); MCV 85.8 fL (80.0-100.0); MEAN PLATELET VOLUME 9.6 fL (7.4-10.4); MONOCYTES 4.5 % (2-11); NEUTROPHILS 88.3 % (40-80); PLATELET COUNT 99 10x3/uL (130-400); RBC 3.25 10x6/uL (4.20-6.10); RDW 17.3 % (11.5-14.5); WBC 9.6 10x3/uL (4.8-10.8)
[2018-02-09 06:30] LABS: CALCIUM 8.3 mg/dL (8.5-10.1); CREATININE - SERUM 1.1 mg/dL (0.6-1.3)
[2018-02-09 11:31] VITALS: BP 168/75
[2018-02-09 17:26] VITALS: BP 159/87
[2018-02-09 20:57] VITALS: BP 148/55
[2018-02-10 04:33] VITALS: BP 152/86
[2018-02-10 08:55] VITALS: BP 147/87
[2018-02-10 10:43] LABS: COLOR DK YELLOW (YELLOW)
[2018-02-10 10:44] LABS: APPEARANCE SL CLDY (CLEAR); BACTERIA FEW /hpf (NONE SEEN); BILIRUBIN NEGATIVE (NEGATIVE); EPITHELIAL CELLS RARE /hpf (0-5); GLUCOSE 100 mg/dL (NEGATIVE); KETONE NEGATIVE (NEGATIVE); NITRITE NEGATIVE (NEGATIVE); PROTEIN 1+ mg/dL (NEGATIVE); RED CELLS - URINE >50 /hpf (0-5); SPECIFIC GRAVITY 1.015 (1.005-1.020); UROBILINOGEN NORMAL (NORMAL); WHITE CELLS - URINE RARE /hpf (0-5)
[2018-02-10 12:32] VITALS: BP 137/86
[2018-02-10 16:31] VITALS: BP 181/86
[2018-02-10 20:00] VITALS: BP 176/78
[2018-02-11 06:00] VITALS: BP 180/86
[2018-02-11 08:45] VITALS: BP 186/87
[2018-02-11 09:31] LABS: BASOPHILS 0 % (0-2); EOSINOPHILS 0.2 % (0-7); HEMOGLOBIN 8.5 g/dL (13.5-17.5); IMMATURE GRANULOCYTES 0.3 % (0-5); LYMPHOCYTES 6.7 % (15-50); MCH 29.1 pg (26.0-34.0); MCV 85.6 fL (80.0-100.0); MEAN PLATELET VOLUME 8.7 fL (7.4-10.4); MONOCYTES 4.6 % (2-11); NEUTROPHILS 88.2 % (40-80); RBC 2.92 10x6/uL (4.20-6.10); RDW 17.2 % (11.5-14.5); WBC 8.8 10x3/uL (4.8-10.8)
[2018-02-11 09:42] LABS: PLATELET COUNT 121 10x3/uL (130-400)
[2018-02-11 10:00] LABS: ALBUMIN 1.3 g/dL (3.4-5.0); ANION GAP 14.9 mmol/L (8-16); BILIRUBIN - TOTAL 0.4 mg/dL (0.2-1.3); CALCIUM 8.1 mg/dL (8.5-10.1); CARBON DIOXIDE 18.8 mmol/L (21.0-32.0); CREATININE - SERUM 1.1 mg/dL (0.6-1.3); POTASSIUM - SERUM 3.7 mmol/L (3.5-5.1); PROTEIN - SERUM 4.4 g/dL (6.4-8.2)
[2018-02-11 12:45] VITALS: BP 174/82
[2018-02-11 17:50] VITALS: BP 168/82
[2018-02-11 20:00] VITALS: BP 166/85
[2018-02-12 06:00] VITALS: BP 175/72
[2018-02-12 09:28] VITALS: BP 181/82
[2018-02-12 12:49] VITALS: BP 179/89
[2018-02-12 16:46] VITALS: BP 179/73
[2018-02-12 20:00] VITALS: BP 161/82
[2018-02-13 05:00] VITALS: BP 174/86
[2018-02-13 09:32] VITALS: BP 161/82
[2018-02-13 09:59] LABS: BASOPHILS 0 % (0-2); EOSINOPHILS 0.1 % (0-7); HEMATOCRIT 24.7 % (42.0-54.0); HEMOGLOBIN 8.3 g/dL (13.5-17.5); IMMATURE GRANULOCYTES 0.3 % (0-5); LYMPHOCYTES 5.5 % (15-50); MCHC 33.6 g/dL (31.0-37.0); MCV 86.4 fL (80.0-100.0); MEAN PLATELET VOLUME 8.5 fL (7.4-10.4); MONOCYTES 3.4 % (2-11); NEUTROPHILS 90.7 % (40-80); PLATELET COUNT 116 10x3/uL (130-400); RBC 2.86 10x6/uL (4.20-6.10); RDW 17.1 % (11.5-14.5); WBC 9.8 10x3/uL (4.8-10.8)
[2018-02-13 12:00] VITALS: BP 148/70
[2018-02-13 21:35] VITALS: BP 141/54
[2018-02-14 05:12] VITALS: BP 147/66
[2018-02-14 08:29] VITALS: BP 150/63
[2018-02-14 12:21] VITALS: BP 144/68
[2018-02-14 15:33] VITALS: BP 133/53
[2018-02-14 21:26] VITALS: BP 131/52
[2018-02-15 04:51] VITALS: BP 124/60
[2018-02-15 09:35] VITALS: BP 174/76
[2018-02-15 16:30] VITALS: BP 118/66
[2018-02-15 20:39] VITALS: BP 145/72
[2018-02-16 00:20] VITALS: BP 146/60
[2018-02-16 05:02] VITALS: BP 149/58
[2018-02-16 06:09] LABS: BASOPHILS 0 % (0-2); EOSINOPHILS 0 % (0-7); HEMATOCRIT 21.4 % (42.0-54.0); IMMATURE GRANULOCYTES 0.4 % (0-5); LYMPHOCYTES 8.4 % (15-50); MCH 29.5 pg (26.0-34.0); MCHC 33.6 g/dL (31.0-37.0); MCV 87.7 fL (80.0-100.0); MEAN PLATELET VOLUME 8.7 fL (7.4-10.4); MONOCYTES 4.7 % (2-11); NEUTROPHILS 86.5 % (40-80); RBC 2.44 10x6/uL (4.20-6.10); RDW 17.5 % (11.5-14.5); WBC 8.2 10x3/uL (4.8-10.8)
[2018-02-16 06:13] LABS: HEMOGLOBIN 7.2 g/dL (13.5-17.5); PLATELET COUNT 183 10x3/uL (130-400)
[2018-02-16 09:04] VITALS: BP 144/63
[2018-02-16 11:52] VITALS: BP 137/61
[2018-02-16 15:32] VITALS: BP 150/62
[2018-02-16 20:50] VITALS: BP 158/76
[2018-02-17 01:26] VITALS: BP 164/70
[2018-02-17 08:37] VITALS: BP 145/72
[2018-02-17 13:07] VITALS: BP 139/57
[2018-02-17 16:55] VITALS: BP 146/71
[2018-02-17 20:00] VITALS: BP 143/59
[2018-02-18] VITALS (10 sets, daily range): BP systolic 136–181; BP diastolic 63–85
[2018-02-18 11:05] LABS: BASOPHILS 0 % (0-2); EOSINOPHILS 0.3 % (0-7); IMMATURE GRANULOCYTES 0.6 % (0-5); LYMPHOCYTES 6.9 % (15-50); MCH 29.5 pg (26.0-34.0); MCHC 33.5 g/dL (31.0-37.0); MCV 88.1 fL (80.0-100.0); MEAN PLATELET VOLUME 9.2 fL (7.4-10.4); MONOCYTES 6.9 % (2-11); NEUTROPHILS 85.3 % (40-80); RDW 16.7 % (11.5-14.5); WBC 6.5 10x3/uL (4.8-10.8)
[2018-02-18 11:06] LABS: HEMATOCRIT 28.1 % (42.0-54.0); HEMOGLOBIN 9.4 g/dL (13.5-17.5); RBC 3.19 10x6/uL (4.20-6.10)
[2018-02-18 11:07] LABS: PLATELET COUNT 131 10x3/uL (130-400)
[2018-02-18 11:21] LABS: ANION GAP 13.6 mmol/L (8-16); CALCIUM 9.1 mg/dL (8.5-10.1); CARBON DIOXIDE 19.7 mmol/L (21.0-32.0); CREATININE - SERUM 1.4 mg/dL (0.6-1.3); POTASSIUM - SERUM 4.3 mmol/L (3.5-5.1)
[2018-02-19] VITALS: BP 179/89
[2018-02-19 05:00] VITALS: BP 185/86
[2018-02-19 09:57] VITALS: BP 213/95
[2018-02-19 12:48] VITALS: BP 198/98
[2018-02-19 17:08] VITALS: BP 90/41
[2018-02-19 20:00] VITALS: BP 183/80
[2018-02-20 05:00] VITALS: BP 173/91
[2018-02-20 08:35] VITALS: BP 177/75
[2018-02-20] MEDS ORDERED: ONCOLOGY MOUTHWASH PO (13:41)
[2018-02-20 13:48] VITALS: BP 156/70
== END 2018-02-20 17:18 | DRG 844 ==
LOC: D.ER 00:02 → D.MS 02:21 → OBSVTIME 02:21 → D.MS 02-06 15:24 → D.ICU 02-19 11:57 → D.MS 02-19 11:57
PROVIDERS: Family Medicine; Legal Medicine; Surgery
PROC: 0DH63UZ Insertion of Feeding Device into Stomach, Percutaneous Approach (ICD-10-PCS; principal; 2018-02-18 11:30)
DX: C79.89 Secondary malignant neoplasm of other specified sites (principal); C64.1 Malignant neoplasm of right kidney, except renal pelvis; D62 Acute posthemorrhagic anemia; G89.3 Neoplasm related pain (acute) (chronic); C78.7 Secondary malignant neoplasm of liver and intrahepatic bile duct; C78.00 Secondary malignant neoplasm of unspecified lung; C79.51 Secondary malignant neoplasm of bone; C79.31 Secondary malignant neoplasm of brain; R31.9 Hematuria, unspecified; E11.42 Type 2 diabetes mellitus with diabetic polyneuropathy; Z79.4 Long term (current) use of insulin; I10 Essential (primary) hypertension; I25.10 Atherosclerotic heart disease of native coronary artery without angina pectoris; E03.9 Hypothyroidism, unspecified; G25.0 Essential tremor; R13.10 Dysphagia, unspecified; Z87.891 Personal history of nicotine dependence

== ENCOUNTER 2018-02-25 22:28 | Inpatient (IN) | payer MEDICARE ==
[~2018-02-25] VITALS: Ht 175.3 cm; Wt 68.2 kg
--- NOTE | ~2018-02-25 | MORECARE ---
CASE MANAGEMENT DISCHARGE SUMMARY PATIENT: DAWN BOLTON UNIT: [id number] ADM DATE: 02/26/18 AGE: 72 : 44 SEX: M ROOM/BED: D.2229 AUTHOR: VJDOC PHYSICIAN: REFERRING PHYSICIAN: RADHA HITCHCOCK MD DATE OF SERVICE: 02/28/18 Discharge Plan Patient Name: DAWN BOLTON Facility: [facility]:[place] : 1945 Planned Disposition: SNF w Planned Readmission Anticipated Discharge Date: Discharge Date: 02/26/2018 Expected LOS: Initial Reviewer: [email or web address] Initial Review Date: 02/26/2018 Generated: 02/28/18 9:20 am DCP- Discharge Planning Updated by [email or web address]: Lucy Deshpande on 02/26/18 1:[address] Patient Name: DAWN BOLTON Admission Status: ER Accout number: [id number] Admission Date: 02-26-2018 : 1945 Admission Diagnosis: Attending: RADHA HITCHCOCK Current LOS: 1 Anticipated DC Date: Planned Disposition: SNF w Planned Readmission Primary Insurance: [facility] [employer] Discharge Planning Comments: CM met in room to discuss discharge planning. Patient is asleep during assessment, his ex- (Roseanna) is in the room. She states his son is sick at home, possibly with the flu. States she is the supervisor contact lens until his son is better. I did not awaken patient (he is known to me from the last visit) and verified with ex that discharge plan is to return to skilled therapy at [facility]. Roseanna states that his son "has considered hospice, but is not ready yet." CM will continue to follow and assist with discharge planning/needs. Circuit Board Inspector: Lucy Deshpande DCPIA - Discharge Planning Initial Assessment Updated by [email or web address]: Lucy Desphande on 02/26/18 2:04 pm * Is the patient Alert and Oriented? No * PCP Dr. Marx * Pharmacy [place] * Preadmission Environment Custodial Facility * Facility Name [facility] * ADLs Total Dependent * Equipment Wheelchair * List name and contact numbers for known caregivers / representatives who currently or will assist patient after discharge: Saroj rao - [phone] Roseanna Brown - ex - [phone] * Community resources currently utilized Home Health * Please name any agencies selected above. [facility] * Additional services required to return to the preadmission environment? No * Can the patient safely return to the preadmission environment? Yes * Has this patient been hospitalized within the prior 30 days at any hospital? Yes Last DP export: 02/26/18 1:08 Patient Name: DAWN BOLTON Page 15097 at 0820 All edits/amendments must be made on the electronic document DICTATION DATE: 02/28/18818 MICROSOFT EXCHANGE ADMINISTRATOR: EAN 02/28/18818 RPT#: [id number] DC DATE:02/26/18 STATUS: DIS IN [facility] [address] [place] [address] END OF REPORT
--- NOTE | ~2018-02-25 | MORECARE ---
CASE MANAGEMENT DISCHARGE SUMMARY PATIENT: DAWN BOLTON UNIT: [id number] ADM DATE: 02/26/18 AGE: 72 : 44 SEX: M ROOM/BED: D.2229 AUTHOR: VJDOC PHYSICIAN: REFERRING PHYSICIAN: RADHA HITCHCOCK MD DATE OF SERVICE: 02/26/18 Discharge Plan Patient Name: DAWN BOLTON Facility: [facility]:[place] : 1945 Planned Disposition: SNF w Planned Readmission Anticipated Discharge Date: Discharge Date: Expected LOS: Initial Reviewer: [email or web address] Initial Review Date: 02/26/2018 Generated: 02/26/18 3:08 pm Comments DCP- Discharge Planning Updated by [email or web address]: Lucy Deshpande on 02/26/18 1:[address] Patient Name: DAWN BOLTON Admission Status: ER Accout number: [id number] Admission Date: 02-26-2018 : 1945 Admission Diagnosis: Attending: RADHA HITCHCOCK Current LOS: 1 Anticipated DC Date: Planned Disposition: SNF w Planned Readmission Primary Insurance: [facility] MEDICARE SOLUTIONS Discharge Planning Comments: CM met in room to discuss discharge planning. Patient is asleep during assessment, his ex- (Roseanna) is in the room. She states his son is sick at home, possibly with the flu. States she is the crane ladle person until his son is better. I did not awaken patient (he is known to me from the last visit) and verified with ex that discharge plan is to return to skilled therapy at [facility]. Roseanna states that his son "has considered hospice, but is not ready yet." CM will continue to follow and assist with discharge planning/needs. Bushel Girl: Lucy Deshpande DCPIA - Discharge Planning Initial Assessment Updated by [email or web address]: Lucy Deshpande on 02/26/18 2:04 pm * Is the patient Alert and Oriented? No * PCP Dr. Marx * Pharmacy [place] * Preadmission Environment [facility] Facility * Facility Name [facility] * ADLs Total Dependent * Equipment Wheelchair * List name and contact numbers for known caregivers / representatives who currently or will assist patient after discharge: Saroj maira - [phone] Roseanna Brown - ex - [phone] * Community resources currently utilized Home Health * Please name any agencies selected above. [facility] * Additional services required to return to the preadmission environment? No * Can the patient safely return to the preadmission environment? Yes * Has this patient been hospitalized within the prior 30 days at any hospital? Yes Last DP export: 02/26/18 1:00 Patient Name: DAWN BOLTON Page 82711 at 1408 All edits/amendments must be made on the electronic document DICTATION DATE: 02/26/181406 MASTER SONAR TECHNICIAN: EAN 02/26/181406 RPT#: [id number] DC DATE: STATUS: ADM IN [facility] [address] [place] [address] END OF REPORT
--- NOTE | ~2018-02-25 | MORECARE ---
CASE MANAGEMENT DISCHARGE SUMMARY PATIENT: DAWN BOLTON UNIT: [id number] ADM DATE: 02/26/18 AGE: 72 : 44 SEX: M ROOM/BED: D.2229 AUTHOR: CASSY ZABALA PHYSICIAN: REFERRING PHYSICIAN: RADHA HITCHCOCK MD DATE OF SERVICE: 02/26/18 Discharge Plan Patient Name: DAWN BOLTON [facility] [facility] 1945 Planned Disposition: SNF w Planned Readmission Anticipated Discharge Date: Discharge Date: Expected LOS: Initial Reviewer: [email or web address] Initial Review Date: 02/26/2018 Generated: 02/26/18 3:00 pm Patient Name: DAWN BOLTON Page 03517 at 1400 All edits/amendments must be made on the electronic document DICTATION DATE: 02/26/18 1359 MOUNTER AUTOMATIC: EAN 02/26/18 1359 RPT#: [id number] OR DATE: STATUS: ADM IN [facility] [address] [place] [address] END OF REPORT
[~2018-02-25 22:28] MED LIST: ASPIRIN325 MG PO; BASAGLAR K100 UNIT/1; COREG6.25 MG PO; FENTORA100 MCG TRANSDERM; LISINOPRIL5 MG PO; LOZOL1.25 MG PO; MEGACE400 MG/10 PO; METFORMIN HCL500 M1 PO; MULTI-DAY VITAM1 TAB PO; ONCOLOGY MOUTHWASH PO; PROBIOTIC250 MG PO; SUTENT50 MG PO; SYNTHROID25 MCG PO; ZOVIRAX800 MG PO
[2018-02-25 23:29] LABS: HEMATOCRIT 29.3 % (42.0-54.0); HEMOGLOBIN 10.3 g/dL (13.5-17.5); MCH 30.4 pg (26.0-34.0); MCHC 35.2 g/dL (31.0-37.0); MCV 86.4 fL (80.0-100.0); MEAN PLATELET VOLUME 8.7 fL (7.4-10.4); NEUTROPHILS 83.7 % (40-80); PLATELET COUNT 155 10x3/uL (130-400); RBC 3.39 10x6/uL (4.20-6.10); RDW 16.2 % (11.5-14.5); WBC 7.5 10x3/uL (4.8-10.8)
[2018-02-25 23:59] LABS: ALBUMIN 1.3 g/dL (3.4-5.0); ANION GAP 11.3 mmol/L (8-16); BILIRUBIN - TOTAL 0.34 mg/dL (0.2-1.3); CALCIUM 8.8 mg/dL (8.5-10.1); CARBON DIOXIDE 24.8 mmol/L (21.0-32.0); CREATININE - SERUM 1.2 mg/dL (0.6-1.3); POTASSIUM - SERUM 4.1 mmol/L (3.5-5.1); PROTEIN - SERUM 5.7 g/dL (6.4-8.2)
[2018-02-26 00:30] LABS: TROPONIN-I 0.034 ng/mL (0.000-0.060)
[2018-02-26 01:27] LABS: APPEARANCE CLEAR (CLEAR); BILIRUBIN NEGATIVE (NEGATIVE); COLOR YELLOW (YELLOW); GLUCOSE NEGATIVE (NEGATIVE); KETONE NEGATIVE (NEGATIVE); NITRITE NEGATIVE (NEGATIVE); PROTEIN 3+ mg/dL (NEGATIVE); SPECIFIC GRAVITY 1.015 (1.005-1.020); UROBILINOGEN NORMAL (NORMAL)
[2018-02-26 01:28] LABS: BACTERIA FEW /hpf (NONE SEEN); EPITHELIAL CELLS 0-5 /hpf (0-5); RED CELLS - URINE 0-5 /hpf (0-5); WHITE CELLS - URINE 0-5 /hpf (0-5)
[2018-02-26 01:30] VITALS: BP 171/79
[2018-02-26 04:30] VITALS: BP 179/82
[2018-02-26 06:42] VITALS: BP 180/82
[2018-02-26 17:05] VITALS: BP 162/63
[2018-02-26 20:15] VITALS: BP 169/75; Ht 175.3 cm; Wt 68.2 kg
== END 2018-02-26 23:44 | disposition hospice, inpatient (51) | DRG 920 ==
LOC: D.ER 22:28 → D.EDHOLD 02-26 05:34 → D.MS 02-26 05:34
PROVIDERS: Family Medicine
DX: T85.848A Pain due to other internal prosthetic devices, implants and grafts, initial encounter (principal); D62 Acute posthemorrhagic anemia; C64.9 Malignant neoplasm of unspecified kidney, except renal pelvis; C79.51 Secondary malignant neoplasm of bone; C79.31 Secondary malignant neoplasm of brain; Y83.8 Other surgical procedures as the cause of abnormal reaction of the patient, or of later complication, without mention of misadventure at the time of the procedure; R31.9 Hematuria, unspecified; E16.2 Hypoglycemia, unspecified

== ENCOUNTER 2018-02-26 23:20 | Inpatient (IN) | payer OTHER ==
[~2018-02-26] VITALS: Ht 175.3 cm; Wt 79.1 kg
--- NOTE | ~2018-02-26 | MORECARE ---
CASE MANAGEMENT DISCHARGE SUMMARY PATIENT: DAWN BOLTON UNIT: [id number] ADM DATE: 02/26/18 AGE: 72 : 43 SEX: M ROOM/BED: D.2229 AUTHOR: CASSY ZABALA PHYSICIAN: REFERRING PHYSICIAN: RADHA HITCHCOCK MD DATE OF SERVICE: 03/04/18 Discharge Plan Patient Name: DAWN BOLTON [facility] [facility] 1945 Planned Disposition: Anticipated Discharge Date: Discharge Date: 03/02/2018 Expected LOS: 0 Initial Reviewer: [email or web address] Initial Review Date: 02/27/2018 Generated: 03/04/18 9:48 am Last DP export: 02/27/18 2:14 Patient Name: DAWN BOLTON Page [id number] at 0848 All edits/amendments must be made on the electronic document DICTATION DATE: 03/04/18847 LOGISTICS CENTER MANAGER: EAN 03/04/18847 RPT#: [id number] DC DATE:03/02/18 STATUS: DIS IN [facility] [address] [place] [address] END OF REPORT
--- NOTE | ~2018-02-26 | MORECARE ---
CASE MANAGEMENT DISCHARGE SUMMARY PATIENT: DAWN BOLTON UNIT: [id number] ADM DATE: 02/26/18 AGE: 72 : 43 SEX: M ROOM/BED: D.2229 AUTHOR: CASSY ZABALA PHYSICIAN: REFERRING PHYSICIAN: RADHA HITCHCOCK MD DATE OF SERVICE: 02/27/18 Discharge Plan Patient Name: DAWN BOLTON [facility] [facility] 1945 Planned Disposition: Anticipated Discharge Date: Discharge Date: Expected LOS: Initial Reviewer: [email or web address] Initial Review Date: 02/27/2018 Generated: 02/27/18 4:14 pm Patient Name: DAWN BOLTON Page [id number] at 1514 All edits/amendments must be made on the electronic document DICTATION DATE: 02/27/18 151 DUPLICATING MACHINE SERVICER: EAN 02/27/18 151 RPT#: [id number] DC DATE: STATUS: ADM IN [facility] [address] [place] [address] END OF REPORT
[2018-02-26 20:00] VITALS: BP 172/106
[2018-02-27 05:08] VITALS: BP 172/106; Ht 175.3 cm; Wt 79.1 kg
[2018-02-27 08:28] VITALS: BP 192/113
[2018-02-27 21:46] VITALS: BP 186/85
[2018-02-28 08:23] VITALS: BP 157/79
[2018-03-01 10:45] VITALS: BP 143/73
== END 2018-03-02 01:47 | DRG 951 ==
LOC: D.MS 23:20
DX: Z51.5 Encounter for palliative care (principal)